=== PATIENT | female | born 1990 | race American Indian/Alaskan Native ===

== ENCOUNTER 2016-04-12 10:07 | Emergency (ER) | payer MEDICAID ==
[2016-04-12 11:18] VITALS: BP 126/73
--- NOTE | 2016-04-12 11:37 | Emergency Department Report ---
Chief Complaint: Abdominal Pain Stated Complaint: ABD PAIN Time Seen by Provider: 04/12/16 11:33 - HPI History of Present Illness: Patient is a 25 y/o female who presents due to abdominal pain x 10 days. Patient denies any dysuria, hematuria or frequency. Patient denies any fever or chills. LMP Mar 01 2016 - ROS Review of Systems: patient denies any fever, chill, diarrhea, dysuria or hematuria - Exam Vital Signs: Vital Signs 04/12/16 11:14 Temperature 98 F Pulse Rate 85 Respiratory 18 Rate Blood Pressure 126/73 O2 Sat by Pulse 100 Oximetry Physical Exam: NAD, generalized abdominal tenderness MSE screening note: Focused history and physical exam performed. Due to findings the following was ordered:abdominal pain protocols ED Disposition for MSE Condition: Stable Instructions: Abdominal Pain (ED)
[2016-04-12 12:00] LABS: Basophils % (Auto) 0.5 % (0.0-1.8); Eosinophils % (Auto) 1.4 % (0.0-4.3); Hematocrit 36.7 % (30.3-42.9); Hemoglobin 11.9 gm/dl (10.1-14.3); Mean Corpuscular HGB Conc 33 % (30-34); Mean Corpuscular Volume 75 fl (79-97); Platelet Count 380 K/mm3 (140-440); Red Cell Distribution Width 14.4 % (13.2-15.2); White Blood Count 6.3 K/mm3 (4.5-11.0)
[2016-04-12 12:07] LABS: Mean Corpuscular Hemoglobin 24 pg (28-32)
[2016-04-12 12:21] LABS: Alanine Aminotransferase 11 units/L (7-56); Albumin/Globulin Ratio 1.1 %; Alkaline Phosphatase 104 units/L (35-129); Anion Gap 15 mmol/L; BUN/Creatinine Ratio 7.14; Bilirubin,Total 0.3 mg/dL (0.1-1.2); Blood Urea Nitrogen 5 mg/dL (7-17); Calcium 8.8 mg/dL (8.4-10.2); Carbon Dioxide 24 mmol/L (22-30); Chloride 100.8 mmol/L (98-107); Glucose 95 mg/dL (65-100); Lipase 31 units/L (13-60); Potassium 3.5 mmol/L (3.6-5.0); Sodium 136 mmol/L (137-145); Total Protein 7.6 g/dL (6.3-8.2)
[2016-04-12 13:14] LABS: Bacteria,Urine 2+ /HPF (Negative); Bilirubin,Urine NEG (Negative); Blood,Urine NEG (Negative); Ketones,Urine NEG (Negative); Leukocyte Esterase,Urine TR (Negative); Mucus,Urine FEW /HPF; Nitrite,Urine NEG (Negative); Protein,Urine <15 mg/dL mg/dL (Negative); Urobilinogen,Urine < 2.0 mg/dL (<2.0)
[2016-04-12] MEDS ORDERED: UNASYN/NS 3 GM/100 ML 100 ML IV ONE (13:32)
== END 2016-04-12 14:20 | disposition left against medical advice (07) ==
LOC: ED 10:07
DX: R10.84 Generalized abdominal pain (principal); Z53.21 Procedure and treatment not carried out due to patient leaving prior to being seen by health care provider
CPT/HCPCS: 36415; 80053; 81001; 81025; 83690; 85025; J0295

== ENCOUNTER 2016-04-16 10:07 | Emergency (ER) | payer MEDICAID ==
[2016-04-16 10:22] VITALS: BP 136/81
--- NOTE | 2016-04-16 10:54 | Emergency Department Report ---
ED Abdominal Pain HPI - General Chief Complaint: Abdominal Pain Stated Complaint: STOMACH PAIN/VOMITING/BODY PAIN Source: patient Mode of arrival: Ambulatory Limitations: No Limitations - History of Present Illness Initial Comments: Patient presents today c/o of cramping pain across her lower abdomen x 2 weeks. NOTE: Patient presneted to this ED on 04/12/16 for same complaints. States she had to leave before seeing a provider as she couldn't wait. Denies resolution of symptom. Reports nausea and vomiting that are intermittent at every other day (last episode being 2 days ago). States the only time she felt this way was when she was with her now 1- YO son. Denies dysuria, urgency, hematuria or frequency, Vaginal pain/bleed/discharge, weakness, dizziness. Denies fever, chills. LMP 03/07/16. Gave 03/01/16 on prior visit. - Related Data Previous Rx's Medication Instructions Recorded Last Taken Type Azithromycin [Zithromax] 250 mg PO DAILY #1 pkg 06/05/15 Unknown Rx Ibuprofen [Motrin] 600 mg PO Q8H PRN #40 tablet 06/05/15 Unknown Rx Loratadine [Claritin] 10 mg PO DAILY #30 tablet 06/05/15 Unknown Rx Prednisone [predniSONE 10 mg 10 mg PO .TAPER #1 tab.ds.pk 06/05/15 Unknown Rx (6-Day Pack, 21 Tabs)] Promethazine /Codeine 5 ml PO Q6H PRN #120 ml 06/05/15 Unknown Rx [Phenergan/Codeine 6.25-10 mg/5 ml] Amoxicillin/K Clav Tab [Augmentin 1 tab PO Q12HR #20 tab 08/27/15 Unknown Rx 875 mg] Fluticasone [Flonase] 1 spray NS QDAY #1 bottle 08/27/15 Unknown Rx Ibuprofen [Motrin] 600 mg PO Q8H PRN #15 tablet 08/27/15 Unknown Rx predniSONE [Deltasone] 50 mg PO QAM #2 tablet 08/27/15 Unknown Rx Ibuprofen [Motrin] 800 mg PO Q8HR PRN #20 tablet 12/06/15 Unknown Rx Acetaminophen [Tylenol] 1,000 mg PO Q6HR PRN #15 tablet 04/16/16 Unknown Rx Nitrofurantoin [place]/M-Cryst 100 mg PO Q12HR #6 capsule 04/16/16 Unknown Rx [Macrobid CAP] Vit No.130/Iron/FA 1 each PO QDAY #60 tablet 04/16/16 Unknown Rx [ Tablet] Allergies Allergy/AdvReac Type Severity Reaction Status Date / Time No Known Allergies Allergy Verified 12/10/15 11:18 ED Review of Systems ROS: Stated complaint: STOMACH PAIN/VOMITING/BODY PAIN Other details as noted in HPI Comment: All other systems reviewed and negative ED Past Medical Hx - Past Medical History Previous Medical History?: No Hx Hypertension: No Hx Congestive Heart Failure: No Hx Diabetes: No Hx Deep Vein Thrombosis: No Hx Renal Disease: No Hx Sickle Cell Disease: (sickle cell trait) Hx Seizures: No Hx Asthma: No Hx COPD: No Hx HIV: No - Surgical History Past Surgical History?: Yes Additional Surgical History: hernia repair, four vaginal deliveries - Social History Smoking Status: Never Smoker Substance Use Type: None - Medications Home Medications: Home Medications Medication Instructions Recorded Confirmed Last Taken Type Azithromycin [Zithromax] 250 mg PO DAILY #1 pkg 06/05/15 Unknown Rx Ibuprofen [Motrin] 600 mg PO Q8H PRN #40 tablet 06/05/15 Unknown Rx Loratadine [Claritin] 10 mg PO DAILY #30 tablet 06/05/15 Unknown Rx Prednisone [predniSONE 10 mg 10 mg PO .TAPER #1 tab.ds.pk 06/05/15 Unknown Rx (6-Day Pack, 21 Tabs)] Promethazine /Codeine 5 ml PO Q6H PRN #120 ml 06/05/15 Unknown Rx [Phenergan/Codeine 6.25-10 mg/5 ml] Amoxicillin/K Clav Tab [Augmentin 1 tab PO Q12HR #20 tab 08/27/15 Unknown Rx 875 mg] Fluticasone [Flonase] 1 spray NS QDAY #1 bottle 08/27/15 Unknown Rx Ibuprofen [Motrin] 600 mg PO Q8H PRN #15 tablet 08/27/15 Unknown Rx predniSONE [Deltasone] 50 mg PO QAM #2 tablet 08/27/15 Unknown Rx Ibuprofen [Motrin] 800 mg PO Q8HR PRN #20 tablet 12/06/15 Unknown Rx Acetaminophen [Tylenol] 1,000 mg PO Q6HR PRN #15 tablet 04/16/16 Unknown Rx Nitrofurantoin [place]/M-Cryst 100 mg PO Q12HR #6 capsule 04/16/16 Unknown Rx [Macrobid CAP] Vit No.130/Iron/FA 1 each PO QDAY #60 tablet 04/16/16 Unknown Rx [ Tablet] ED Physical Exam - General Limitations: No Limitations General appearance: alert, in no apparent distress - Head Head exam: Present: atraumatic, normocephalic - Eye Eye exam: Present: normal appearance, PERRL, EOMI - Neck Neck exam: Present: normal inspection, full ROM. Absent: tenderness, lymphadenopathy - Respiratory Respiratory exam: Present: normal lung sounds bilaterally. Absent: respiratory distress - Cardiovascular Cardiovascular Exam: Present: regular rate, normal rhythm - GI/Abdominal GI/Abdominal exam: Present: soft, tenderness (Right CVA tenderness. No abdominopelvic tenderness.), normal bowel sounds. Absent: guarding, rebound, rigid - Extremities Exam Extremities exam: Present: normal inspection, full ROM, normal capillary refill. Absent: tenderness, pedal edema, joint swelling - Back Exam Back exam: Present: normal inspection, CVA tenderness (R) - Neurological Exam Neurological exam: Present: alert, oriented X3, normal gait, reflexes normal. Absent: motor sensory deficit - Psychiatric Psychiatric exam: Present: normal affect, normal mood - Skin Skin exam: Present: warm, dry, intact, normal color. Absent: rash, cyanosis, diaphoretic, erythema, pallor ED Course Vital Signs 04/16/16 10:19 Temperature 98.4 F Pulse Rate 105 H Respiratory 16 Rate Blood Pressure 136/81 O2 Sat by Pulse 100 Oximetry ED Medical Decision Making - Lab Data Lab and urine results from 04/12/16 reviewed. - Radiology Data Radiology results: report reviewed According to radiology report of OB and transvaginal ultrasound, there is a single intrauterine estimated at 5.5 weeks gestation (see report for details). - Medical Decision Making 25 YO 2, Para 2 with 1st trimester IUP confirmed on US. Quant HCG of 3Patient is stable. She will be DC'd on Macrobid giving the trace LE on UA, and patient has right flank pain. Patient instructed to follow up immediately with OB (referral provided). She verbalized understanding and is agreeable to plan. patient discussed with Dr. Dennis. He is agreeable to plan. Critical care attestation.: If time is entered above; I have spent that time in minutes in the direct care of this critically ill patient, excluding procedure time. ED Disposition Clinical Impression: UTI (urinary tract infection) during , Morning sickness Normal IUP (intrauterine ) on ultrasound Qualifiers: Trimester: first trimester Qualified Code(s): Z34.91 - Encounter for supervision of normal , unspecified, first trimester Disposition: DISCHARGED TO HOME OR SELFCARE Is pt being admited?: No Does the pt Need Aspirin: No Condition: Stable Instructions: Morning Sickness (ED), (ED), Urinary Tract Infection in Women (ED), Abdominal Pain (ED) Additional Instructions: Follow instructions for care. Use medications as prescribed. Schedule immediate follow-up appointment with her OB. Return to ED for new or worsening conditions. Prescriptions: Acetaminophen [Tylenol] 1,000 mg PO Q6HR PRN #15 tablet PRN Reason: Pain Nitrofurantoin [place]/M-Cryst [Macrobid CAP] 100 mg PO Q12HR #6 capsule Vit No.130/Iron/FA [ Tablet] 1 each PO QDAY #60 tablet Referrals: ROSS MOORE MD [Staff Physician] - [place] PRIMARY CAREMD [Primary Care Provider] - 2-3 Days
[2016-04-16] MEDS ORDERED: TYLENOL PO ONE (11:01)
--- NOTE | 2016-04-16 12:03 | Ultrasound Report ---
ULTRASOUND OB LESS THAN 14 WEEKS - TRANSABDOMINAL AND TRANSVAGINAL INDICATION: Pelvic cramping. Serum beta-hCG of 3576 units. COMPARISON: None similar during this gestation. FINDINGS: Transabdominal and transvaginal pelvic sonography performed in this patient with LMP of 03/01/2016 and estimated menstrual age of 6 weeks and 4 days. An anteverted uterus measuring approximately 9.1 x 5.8 x 6.5 cm demonstrates a single intrauterine gestational sac with mean diameter of 0.9 cm, corresponding to 5 weeks and 5 days. No pole identified. Small yolk sac felt present. Approximately 1 x 0.9 x 0.5 cm subchorionic hemorrhage possible, endovaginal image 32. No significant free fluid. Cervix appears closed. Both maternal ovaries identified, estimated at 4 x 2.4 x 2.9 cm on the right. Few right ovarian/paraovarian cysts range between 1.5-1.8 cm. Left ovary approximately 3.5 x 1.7 x 1.3 cm. CONCLUSION: 1. Single intrauterine gestation with an ultrasound estimated age of 5 weeks and 5 days and TREY of 12/12/2016. Viability however not confirmed at this time and may be correlated for clinically, with serial serum beta-hCG values and/or a followup sonogram in approximately 2 weeks, if warranted. 2. Few other findings, as above. Thank you for the opportunity to participate in this patient's care.
== END 2016-04-16 12:36 | disposition home or self-care (01) ==
LOC: ED 10:07
DX: Z34.91 Encounter for supervision of normal pregnancy, unspecified, first trimester (principal); O23.41 Unspecified infection of urinary tract in pregnancy, first trimester; N39.0 Urinary tract infection, site not specified; R69 Illness, unspecified; Z3A.01 Less than 8 weeks gestation of pregnancy
CPT/HCPCS: 36415; 76801; 76817; 84702; 99284

== ENCOUNTER 2016-05-06 20:28 | Emergency (ER) | payer MEDICAID ==
[2016-05-06 22:15] LABS: Basophils % (Auto) 0.4 % (0.0-1.8); Eosinophils % (Auto) 0.5 % (0.0-4.3); Hematocrit 37.2 % (30.3-42.9); Hemoglobin 12.3 gm/dl (10.1-14.3); Mean Corpuscular HGB Conc 33 % (30-34); Mean Corpuscular Volume 73 fl (79-97); Platelet Count 376 K/mm3 (140-440); Red Blood Count 5.08 M/mm3 (3.65-5.03); Red Cell Distribution Width 16.2 % (13.2-15.2)
[2016-05-06 22:17] LABS: Alanine Aminotransferase 9 units/L (7-56); Albumin/Globulin Ratio 1.1 %; Alkaline Phosphatase 94 units/L (35-129); Anion Gap 17 mmol/L; Bilirubin,Total 0.4 mg/dL (0.1-1.2); Blood Urea Nitrogen 6 mg/dL (7-17); Calcium 8.8 mg/dL (8.4-10.2); Carbon Dioxide 25 mmol/L (22-30); Chloride 98.3 mmol/L (98-107); Glucose 95 mg/dL (65-100); Lipase 14 units/L (13-60); Sodium 136 mmol/L (137-145); Total Protein 7.8 g/dL (6.3-8.2)
[2016-05-06 22:26] LABS: Mean Corpuscular Hemoglobin 24 pg (28-32)
[2016-05-06 22:38] LABS: Bilirubin,Urine NEG (Negative); Blood,Urine NEG (Negative); Ketones,Urine NEG (Negative); Leukocyte Esterase,Urine TR (Negative); Mucus,Urine FEW /HPF; Nitrite,Urine NEG (Negative); Protein,Urine <15 mg/dL mg/dL (Negative); Urobilinogen,Urine < 2.0 mg/dL (<2.0)
[2016-05-06] MEDS ORDERED: PHENERGAN PO ONE (23:34)
--- NOTE | 2016-05-06 23:39 | Emergency Department Report ---
ED N/V/D HPI - General Chief complaint: Abdominal Pain Stated complaint: VOMITING Time Seen by Provider: 05/06/16 23:30 Source: patient Mode of arrival: Ambulatory Limitations: No Limitations - History of Present Illness Initial comments: 25-year-old female presents to the emergency department complaining of nausea and vomiting. Patient states symptoms have been present for approximately 2 weeks. Patient states she is 9 weeks , . Her SALES H[employer]TER prescribed her Zofran ODT, but states this is not working. Patient reports upper abdominal soreness secondary to vomiting. She denies diarrhea, vaginal bleeding , or vaginal discharge. She states she has had an ultrasound this that showed an IUP. There are no other complaints. MD complaint: nausea, vomiting, abdominal pain -: Gradual, week(s) (2) Description of Vomiting: food contents Associated Abdominal Pain: Yes Location: epigastric Radiation: none Severity: mild Quality: aching Consistency: constant Improves with: none Worsens with: none Associated Symptoms: denies other symptoms - Related Data Previous Rx's Medication Instructions Recorded Last Taken Type Azithromycin [Zithromax] 250 mg PO DAILY #1 pkg 06/05/15 Unknown Rx Ibuprofen [Motrin] 600 mg PO Q8H PRN #40 tablet 06/05/15 Unknown Rx Loratadine [Claritin] 10 mg PO DAILY #30 tablet 06/05/15 Unknown Rx Prednisone [predniSONE 10 mg 10 mg PO .TAPER #1 tab.ds.pk 06/05/15 Unknown Rx (6-Day Pack, 21 Tabs)] Promethazine /Codeine 5 ml PO Q6H PRN #120 ml 06/05/15 Unknown Rx [Phenergan/Codeine 6.25-10 mg/5 ml] Amoxicillin/K Clav Tab [Augmentin 1 tab PO Q12HR #20 tab 08/27/15 Unknown Rx 875 mg] Fluticasone [Flonase] 1 spray NS QDAY #1 bottle 08/27/15 Unknown Rx Ibuprofen [Motrin] 600 mg PO Q8H PRN #15 tablet 08/27/15 Unknown Rx predniSONE [Deltasone] 50 mg PO QAM #2 tablet 08/27/15 Unknown Rx Ibuprofen [Motrin] 800 mg PO Q8HR PRN #20 tablet 12/06/15 Unknown Rx Acetaminophen [Tylenol] 1,000 mg PO Q6HR PRN #15 tablet 02/03/17 Unknown Rx Nitrofurantoin [place]/M-Cryst 100 mg PO Q12HR #6 capsule 04/16/16 Unknown Rx [Macrobid CAP] Vit No.130/Iron/FA 1 each PO QDAY #60 tablet 04/16/16 Unknown Rx [ Tablet] Allergies Allergy/AdvReac Type Severity Reaction Status Date / Time No Known Allergies Allergy Verified 12/10/15 11:18 ED Review of Systems ROS: Stated complaint: VOMITING Other details as noted in HPI Comment: All other systems reviewed and negative Gastrointestinal: abdominal pain, nausea, vomiting ED Past Medical Hx - Past Medical History Previous Medical History?: No Hx Hypertension: No Hx Congestive Heart Failure: No Hx Diabetes: No Hx Deep Vein Thrombosis: No Hx Renal Disease: No Hx Sickle Cell Disease: (sickle cell trait) Hx Seizures: No Hx Asthma: No Hx COPD: No Hx HIV: No - Surgical History Past Surgical History?: Yes Additional Surgical History: hernia repair, four vaginal deliveries - Family History Family history: no significant - Social History Smoking Status: Never Smoker Substance Use Type: None - Medications Home Medications: Home Medications Medication Instructions Recorded Confirmed Last Taken Type Azithromycin [Zithromax] 250 mg PO DAILY #1 pkg 06/05/15 Unknown Rx Ibuprofen [Motrin] 600 mg PO Q8H PRN #40 tablet 06/05/15 Unknown Rx Loratadine [Claritin] 10 mg PO DAILY #30 tablet 06/05/15 Unknown Rx Prednisone [predniSONE 10 mg 10 mg PO .TAPER #1 tab.ds.pk 06/05/15 Unknown Rx (6-Day Pack, 21 Tabs)] Promethazine /Codeine 5 ml PO Q6H PRN #120 ml 06/05/15 Unknown Rx [Phenergan/Codeine 6.25-10 mg/5 ml] Amoxicillin/K Clav Tab [Augmentin 1 tab PO Q12HR #20 tab 08/27/15 Unknown Rx 875 mg] Fluticasone [Flonase] 1 spray NS QDAY #1 bottle 08/27/15 Unknown Rx Ibuprofen [Motrin] 600 mg PO Q8H PRN #15 tablet 08/27/15 Unknown Rx predniSONE [Deltasone] 50 mg PO QAM #2 tablet 08/27/15 Unknown Rx Ibuprofen [Motrin] 800 mg PO Q8HR PRN #20 tablet 12/06/15 Unknown Rx Acetaminophen [Tylenol] 1,000 mg PO Q6HR PRN #15 tablet 04/16/16 Unknown Rx Nitrofurantoin [place]/M-Cryst 100 mg PO Q12HR #6 capsule 04/16/16 Unknown Rx [Macrobid CAP] Vit No.130/Iron/FA 1 each PO QDAY #60 tablet 04/16/16 Unknown Rx [ Tablet] ED Physical Exam - General Limitations: No Limitations General appearance: alert, in no apparent distress - Head Head exam: Present: atraumatic, normocephalic - Eye Eye exam: Present: normal appearance, PERRL, EOMI - ENT ENT exam: Present: normal exam, normal orophraynx, mucous membranes moist - Neck Neck exam: Present: normal inspection, full ROM. Absent: tenderness - Respiratory Respiratory exam: Present: normal lung sounds bilaterally. Absent: respiratory distress - Cardiovascular Cardiovascular Exam: Present: regular rate, normal rhythm, normal heart sounds - GI/Abdominal GI/Abdominal exam: Present: soft, normal bowel sounds. Absent: distended, tenderness - Extremities Exam Extremities exam: Present: normal inspection, full ROM. Absent: tenderness - Back Exam Back exam: Present: normal inspection, full ROM. Absent: tenderness - Neurological Exam Neurological exam: Present: alert, oriented X3. Absent: motor sensory deficit - Skin Skin exam: Present: warm, dry, intact ED Course Vital Signs 05/06/16 05/06/16 05/07/16 21:14 23:40 01:00 Temperature 98.7 F 98.5 F Pulse Rate 77 86 Respiratory 16 20 Rate Blood Pressure 114/73 Blood Pressure 129/79 [Left] O2 Sat by Pulse 100 100 100 Oximetry ED Medical Decision Making - Lab Data Result diagrams: 05/06/16 21:44 05/06/16 21:44 - Medical Decision Making Lab results reviewed and discussed with the patient. Patient reports feeling better following IV fluids and medication. Patient has tolerated oral liquids. Patient will be discharged home at this time to follow up with her [employer]ES [employer]TER. - Differential Diagnosis vomiting, dehydration, electrolyte abnormality, hyperemesis gravidarum Critical care attestation.: If time is entered above; I have spent that time in minutes in the direct care of this critically ill patient, excluding procedure time. ED Disposition Clinical Impression: Vomiting affecting Disposition: DISCHARGED TO HOME OR SELFCARE Is pt being admited?: No Condition: Stable Instructions: Acute Nausea and Vomiting (ED) Referrals: MARIANO ROBLERO MD [Staff Physician] - 3-5 Days Time of Disposition: 01:53
[2016-05-07] MEDS ORDERED: ZOFRAN ONE (00:22)
[2016-05-07] MEDS ORDERED: NACL 0.9% 1000 ML 1,000 ML ONE (00:22)
[2016-05-07] MEDS ORDERED: NACL 0.9% 1000 ML 1,000 ML IV ONE (00:24)
[2016-05-07] MEDS ORDERED: ZOFRAN IV ONE (00:24)
[2016-05-07 02:16] VITALS: BP 110/68
== END 2016-05-07 02:20 | disposition home or self-care (01) ==
LOC: ED 20:28
DX: O21.9 Vomiting of pregnancy, unspecified (principal); Z3A.01 Less than 8 weeks gestation of pregnancy; D57.3 Sickle-cell trait
CPT/HCPCS: 36415; 80053; 81001; 83690; 84703; 85025; 96361; 96374; 99283; J2405; J7030; Q0169

== ENCOUNTER 2016-05-08 16:06 | Emergency (ER) | payer MEDICAID ==
[2016-05-08 16:37] VITALS: BP 119/71
[2016-05-08 17:49] LABS: Bilirubin,Urine NEG (Negative); Blood,Urine NEG (Negative); Ketones,Urine NEG (Negative); Leukocyte Esterase,Urine SM (Negative); Nitrite,Urine NEG (Negative); Protein,Urine <15 mg/dL mg/dL (Negative); Urobilinogen,Urine < 2.0 mg/dL (<2.0)
[2016-05-08 18:54] LABS: Anion Gap 19 mmol/L; Blood Urea Nitrogen 6 mg/dL (7-17); Calcium 9.2 mg/dL (8.4-10.2); Carbon Dioxide 24 mmol/L (22-30); Chloride 99.4 mmol/L (98-107); Glucose 89 mg/dL (65-100); Potassium 3.9 mmol/L (3.6-5.0); Sodium 138 mmol/L (137-145)
--- NOTE | 2016-05-09 08:16 | ED Elopement Review ---
ED Pt Elopement review - Results review Lab results: Laboratory Tests 05/08/16 05/08/16 17:24 18:24 Sodium 138 Potassium 3.9 Chloride 99.4 Carbon Dioxide 24 Anion Gap 19 BUN 6 L Creatinine 0.6 L Estimated GFR > 60 BUN/Creatinine Ratio 10.00 Glucose 89 Calcium 9.2 Urine Color Yellow Urine Turbidity Clear Urine pH 6.0 Ur Specific [place] 1.014 Urine Protein <15 mg/dl Urine Glucose (UA) Neg Urine Ketones Neg Urine Blood Neg Urine Nitrite Neg Urine Bilirubin Neg Urine Urobilinogen < 2.0 Ur Leukocyte Esterase Sm Urine WBC (Auto) 1.0 Urine RBC (Auto) 2.0 U Epithel Cells (Auto) 4.0 - Call Back decision Pt Call Back Decision: No action required
== END 2016-05-09 01:53 | disposition left against medical advice (07) ==
LOC: ED 16:06
DX: O21.9 Vomiting of pregnancy, unspecified (principal); R11.0 Nausea; Z3A.10 10 weeks gestation of pregnancy; Z53.21 Procedure and treatment not carried out due to patient leaving prior to being seen by health care provider
CPT/HCPCS: 36415; 80048; 81001

== ENCOUNTER 2016-06-02 17:51 | Emergency (ER) | payer MEDICAID ==
[2016-06-02 18:59] LABS: Basophils % (Auto) 0.3 % (0.0-1.8); Eosinophils % (Auto) 0.2 % (0.0-4.3); Hematocrit 40.8 % (30.3-42.9); Hemoglobin 13.8 gm/dl (10.1-14.3); Mean Corpuscular HGB Conc 34 % (30-34); Mean Corpuscular Volume 72 fl (79-97); Platelet Count 314 K/mm3 (140-440); Red Blood Count 5.66 M/mm3 (3.65-5.03); Red Cell Distribution Width 17.4 % (13.2-15.2); White Blood Count 4.3 K/mm3 (4.5-11.0)
[2016-06-02 19:04] LABS: Mean Corpuscular Hemoglobin 25 pg (28-32)
[2016-06-02 19:06] LABS: Anion Gap 20 mmol/L; BUN/Creatinine Ratio 8.57; Blood Urea Nitrogen 6 mg/dL (7-17); Calcium 8.8 mg/dL (8.4-10.2); Carbon Dioxide 23 mmol/L (22-30); Chloride 94.9 mmol/L (98-107); Glucose 89 mg/dL (65-100); Potassium 3.5 mmol/L (3.6-5.0); Sodium 134 mmol/L (137-145)
[2016-06-02 19:17] LABS: Bilirubin,Urine NEG (Negative); Blood,Urine SM (Negative); Ketones,Urine TR mg/dL (Negative); Leukocyte Esterase,Urine LG (Negative); Nitrite,Urine NEG (Negative)
[2016-06-02 21:39] VITALS: BP 112/61
[2016-06-02] MEDS ORDERED: ZOFRAN IV ONE (21:43)
[2016-06-02] MEDS ORDERED: ROCEPHIN/NS 1 GM/50 ML 1 GM/50 ML BAG IV ONE (21:43)
[2016-06-02] MEDS ORDERED: TYLENOL PO ONE (21:43)
[2016-06-02] MEDS ORDERED: K-DUR PO ONE (21:47)
--- NOTE | 2016-06-02 21:48 | Emergency Department Report ---
ED N/V/D HPI - General Chief complaint: Nausea/Vomiting/Diarrhea Stated complaint: 11 WKS /POSS FLU Time Seen by Provider: 06/02/16 21:37 Source: patient Mode of arrival: Ambulatory Limitations: No Limitations - History of Present Illness Initial comments: 25-year-old female the past medical history sickle cell trait currently 11 weeks presents to Hospital complaints of the flu. Patient states her children are all sick with similar symptoms. She was told to only take Tylenol. For the past 5 days she has had nausea, vomiting with by mouth intolerance and hasn't been able to eat or drink anything. Positive fever with Generalized body aches described as 10/10 intensity. Positive cough productive of sputum. Patient swallows he cannot recall the color. She denies diarrhea. She has had care including ultrasound denies vaginal bleeding or dysuria - Related Data Previous Rx's Medication Instructions Recorded Last Taken Type Vit No.130/Iron/FA 1 each PO QDAY #60 tablet 04/16/16 05/08/16 09:00 Rx [ Tablet] Nitrofurantoin [place]/M-Cryst 100 mg PO Q12HR #14 capsule 06/03/16 Unknown Rx [Macrobid CAP] Promethazine HCl [Phenergan SUPPOS] 25 mg RC Q4-6H PRN #20 supp.rect 06/03/16 Unknown Rx Allergies Allergy/AdvReac Type Severity Reaction Status Date / Time No Known Allergies Allergy Verified 06/02/16 18:15 ED Review of Systems ROS: Stated complaint: 11 WKS /POSS FLU Other details as noted in HPI Comment: All other systems reviewed and negative Other: Constitutional: No fevers chills Eyes: No eye pain visual changes ENT:+ sore throat Neck: Denies pain Respiratory: + cough, no sob Cardiovascular: Denies chest pain, palpitations, syncope GI: as per hpi : Denies dysuria Musculoskeletal: Generalized body Skin: Denies rash, lesions, erythema Neurologic: Denies headache, numbness, weakness Psychiatric: Denies suicidal ideation, hallucinations ED Past Medical Hx - Past Medical History Hx Hypertension: No Hx Congestive Heart Failure: No Hx Diabetes: No Hx Deep Vein Thrombosis: No Hx Renal Disease: No Hx Sickle Cell Disease: Yes (sickle cell trait.) Hx Seizures: No Hx Asthma: No Hx COPD: No Hx HIV: No - Surgical History Additional Surgical History: hernia repair, four vaginal deliveries - Social History Smoking Status: Never Smoker Substance Use Type: None - Medications Home Medications: Home Medications Medication Instructions Recorded Confirmed Last Taken Type Vit No.130/Iron/FA 1 each PO QDAY #60 tablet 04/16/16 05/08/16 09:00 Rx [ Tablet] Nitrofurantoin [place]/M-Cryst 100 mg PO Q12HR #14 capsule 06/03/16 Unknown Rx [Macrobid CAP] Promethazine HCl [Phenergan SUPPOS] 25 mg RC Q4-6H PRN #20 supp.rect 06/03/16 Unknown Rx ED Physical Exam - General Limitations: No Limitations - Other Other exam information: General: No limitations, patient is alert in no acute distress Head exam: Atraumatic, normocephalic Eyes exam: Normal appearance, pupils equal reactive to light, extraocular movements intact ENT: No exudates posteriorly Neck exam: Normal inspection, full range of motion, no meningismus nontender Respiratory exam: Clear to auscultation bilateral, no wheezes, rales, crackles Cardiovascular: Normal rate and rhythm, normal heart sounds Abdomen: Soft, nondistended, and nontender, with normal bowel sounds, no rebound, or guarding Extremity: Full range of motion normal inspection no deformity Back: Normal Inspection, full range of motion, no tenderness Neurologic: Alert, oriented x3, cranial nerves intact, no motor or sensory deficit Psychiatric: normal affect, normal mood Skin: Warm, dry, intact ED Course Vital Signs 06/02/16 06/02/16 18:10 21:38 Temperature 98.5 F Pulse Rate 99 H 101 H Respiratory 16 16 Rate Blood Pressure 118/87 Blood Pressure 112/61 [Left] O2 Sat by Pulse 100 100 Oximetry - Reevaluation(s) Reevaluation #1: 06/02/16 21:46 Tylenol, D5 normal saline and Rocephin ordered IV ED Medical Decision Making - Lab Data Result diagrams: 06/02/16 18:28 06/02/16 18:28 Lab Results 06/02/16 06/02/16 06/02/16 Range/Units 18:28 18:28 18:30 WBC 4.3 L (4.5-11.0) K/mm3 RBC 5.66 H (3.65-5.03) M/mm3 Hgb 13.8 (10.1-14.3) gm/dl Hct 40.8 (30.3-42.9) % MCV 72 L (79-97) fl MCH 25 L (28-32) pg MCHC 34 (30-34) % RDW 17.4 H (13.2-15.2) % Plt Count 314 (140-440) K/mm3 Lymph % (Auto) 27.1 (13.4-35.0) % [place] % (Auto) 9.9 H (0.0-7.3) % Eos % (Auto) 0.2 (0.0-4.3) % Baso % (Auto) 0.3 (0.0-1.8) % Lymph # 1.2 (1.2-5.4) K/mm3 [place] # 0.4 (0.0-0.8) K/mm3 Eos # 0.0 (0.0-0.4) K/mm3 Baso # 0.0 (0.0-0.1) K/mm3 Seg Neutrophils % 62.5 (40.0-70.0) % Seg Neutrophils # 2.7 (1.8-7.7) K/mm3 Carbon Dioxide 23 (22-30) mmol/L BUN 6 L (7-17) mg/dL Creatinine 0.7 (0.7-1.2) mg/dL Estimated GFR > 60 ml/min BUN/Creatinine Ratio 8.57 % Glucose 89 (65-100) mg/dL Calcium 8.8 (8.4-10.2) mg/dL Urine Color Yellow (Yellow) Urine Turbidity Slightly-cloudy (Clear) Urine pH 5.0 (5.0-7.0) Ur Specific [place] 1.018 (1.003-1.030) Urine Protein 30 mg/dl (Negative) mg/dL Urine Glucose (UA) Neg (Negative) mg/dL Urine Ketones Tr (Negative) mg/dL Urine Blood Sm (Negative) Urine Nitrite Neg (Negative) Urine Bilirubin Neg (Negative) Urine Urobilinogen 2.0 (<2.0) mg/dL Ur Leukocyte Esterase Lg (Negative) Urine WBC (Auto) 30.0 H (0.0-6.0) /HPF Urine RBC (Auto) 5.0 (0.0-6.0) /HPF U Epithel Cells (Auto) 21.0 H (0-13.0) /HPF Sodium 134, potassium 3.5, chloride 94.9, anion gap 20 - Medical Decision Making Feeling better after IV fluids and meds. Will tolerate by mouth salicylate ED. Will be discharged on Macrobid for urinary leukocytosis. Culture pending. - Differential Diagnosis UTI, viral syndrome, pneumonia, gastritis, pancreatitis, N/V in Critical Care Time: No Critical care attestation.: If time is entered above; I have spent that time in minutes in the direct care of this critically ill patient, excluding procedure time. ED Disposition Clinical Impression: Viral syndrome, , Hypokalemia, Nausea and vomiting during , Urine WBC increased Disposition: DISCHARGED TO HOME OR SELFCARE Is pt being admited?: No Does the pt Need Aspirin: No Condition: Stable Instructions: (ED), Viral Syndrome (ED), Urinary Tract Infection in Women (ED) Additional Instructions: Take the nausea medication as needed. Take Tylenol as needed for pain or fever. Follow-up with her doctor. Return if symptoms worsen. Prescriptions: Nitrofurantoin [place]/M-Cryst [Macrobid CAP] 100 mg PO Q12HR #14 capsule Promethazine HCl [Phenergan SUPPOS] 25 mg RC Q4-6H PRN #20 supp.rect PRN Reason: Nausea And Vomiting Referrals: MARIANO ROBLERO MD [Primary Care Provider] - 3-5 Days Time of Disposition: 00:17
[2016-06-02 21:56] LABS: Alanine Aminotransferase 14 units/L (7-56); Albumin/Globulin Ratio 0.9 %; Alkaline Phosphatase 105 units/L (35-129); Bilirubin,Total 0.4 mg/dL (0.1-1.2); Lipase 31 units/L (13-60); Total Protein 8.4 g/dL (6.3-8.2)
[2016-06-02] MEDS ORDERED: D5NS 1,000 ML IV SCH (22:00)
[2016-06-02 22:07] LABS: Bilirubin,Direct < 0.2 mg/dL (0-0.2); Bilirubin,Indirect 0.2 mg/dL
== END 2016-06-03 00:40 | disposition home or self-care (01) ==
LOC: ED 17:51
DX: O21.0 Mild hyperemesis gravidarum (principal); O99.281 Endocrine, nutritional and metabolic diseases complicating pregnancy, first trimester; E87.6 Hypokalemia; B34.9 Viral infection, unspecified; R82.99 Other abnormal findings in urine; Z3A.11 11 weeks gestation of pregnancy
CPT/HCPCS: 36415; 80048; 80074; 81001; 83690; 85025; 87086; 87400; 96361; 96374; 96375; 99284; J0696; J2405; J7042; 82962

== ENCOUNTER 2016-09-24 17:32 | Outpatient (CLI) | payer MEDICAID ==
[2016-09-24 18:24] VITALS: BP 116/63
[2016-09-24 18:57] LABS: Bilirubin,Urine NEG (Negative); Blood,Urine NEG (Negative); Ketones,Urine NEG (Negative); Leukocyte Esterase,Urine LG (Negative); Mucus,Urine FEW /HPF; Nitrite,Urine NEG (Negative); Protein,Urine <15 mg/dL mg/dL (Negative); Urobilinogen,Urine < 2.0 mg/dL (<2.0)
[2016-09-24] MEDS ORDERED: LACTATED RINGERS 500 ML IV ONE (19:29)
[2016-09-24] MEDS ORDERED: FLEXERIL PO ONE (20:30)
== END 2016-09-24 20:00 | disposition home or self-care (01) ==
LOC: TRG 17:32
PROVIDERS: ATTEND Obstetrics & Gynecology
DX: O47.1 False labor at or after 37 completed weeks of gestation (principal); Z3A.28 28 weeks gestation of pregnancy
CPT/HCPCS: 81001; J7120

== ENCOUNTER 2016-11-26 02:50 | Inpatient (IN) | payer MEDICAID ==
[2016-11-26] MEDS ORDERED: LACTATED RINGERS 1,000 ML ONE (03:48)
--- NOTE | 2016-11-26 04:11 | History and Physical Report ---
History of Present Illness Date of admission: 11/26/16 03:20 History of present illness: Menstrual History Regularity: regular Menses every: 28 days Duration: 5 LMP: 03/01/2016 LMP reliability: definite LMP character: normal test type: urine test Date: 04/20/2016 BC at conception: none Planned ? no EDC Calculations LMP: 12/06/2016 EDC Confirmation: 12/15/2016 Past History : 5 Term Births: 4 Premature Births: 0 Living Children: 4 Para: 4 Mult. Births: 0 Prev : 0 Prev. attempt? 0 Aborta: 0 Elect. Ab: 0 Spont. Ab: 0 Ectopics: 0 # 1 Delivery date: 12/13/2010 Weeks Gestation: 36 labor: yes Delivery type: Anesthesia type: epidural Delivery location: [facility] Infant Sex: Male weight: 5-11 Name: Olu # 2 Delivery date: 12/28/2011 Weeks Gestation: 37 Delivery type: Anesthesia type: epidural Delivery location: [facility] Infant Sex: Male weight: 6-6 Name: V[place]a # 3 Delivery date: 07/22/2013 Weeks Gestation: 38 Delivery type: Delivery location: [facility] Sex: Female weight: 5-12 Name: Josy # 4 Delivery date: 03/20/2015 Weeks Gestation: 38 Delivery type: Delivery location: [facility] Infant Sex: Male weight: 7-0 Past Medical History: None Past Surgical History: Hernia repair as a child Past Medical History Abnormal PAP: negative Uterine Anomaly: negative Social Hx: Patient is single Smoking History: Patient has never smoked. Infection History HIV Risk Eval: no Genetic History Congenital Heart Defect: Mom: no Dad: no Myesha Disease: Mom: no Dad: no Thalassemia Mom: no Dad: no Neural Tube Defect Mom: no Dad: no Down's Syndrome Mom: no Dad: no Paco-Sachs Mom: no Dad: no Sickle Cell Disease/Trait Mom: yes Dad: no Hemophilia Mom: no Dad: no Muscular Dystrophy Mom: no Dad: no Cystic Fibrosis Mom: no Dad: no [place] Chorea Mom: no Dad: no Mental Retardation Mom: no Dad: no Fragile X Mom: no Dad: no Other Genetic/Chromosomal Disorder Mom: no Dad: no Child w/other defect Mom: no Dad: no Enviromental Exposures Xray Exposure: no Medication, drug, or alcohol use since LMP: no Chemical/Other Exposure: no Current Allergies (reviewed today): No known allergies Past History - Obstetrical History Expected Date of Delivery: 12/15/16 Actual Gestation: 37 Week(s) 2 Day(s) : 5 Para: 4 Hx # Term Pregnancies: 4 Number of Pregnancies: 0 Spontaneous Abortions: 0 Induced : 0 Number of Living Children: 4 Medications and Allergies Allergies Allergy/AdvReac Type Severity Reaction Status Date / Time No Known Allergies Allergy Verified 06/02/16 18:15 Home Medications Medication Instructions Recorded Confirmed Last Taken Type Vit No.130/Iron/FA 1 each PO QDAY #60 tablet 04/16/16 05/08/16 09:00 Rx [ Tablet] Nitrofurantoin [place]/M-Cryst 100 mg PO Q12HR #14 capsule 06/03/16 Unknown Rx [Macrobid CAP] Promethazine HCl [Phenergan SUPPOS] 25 mg RC Q4-6H PRN #20 supp.rect 06/03/16 Unknown Rx - Vital Signs Vital signs: Vital Signs Pulse BP 92 H 140/89 11/26/16 03:03 11/26/16 03:03 Temp Pulse Resp BP Pulse Ox 110 H 140/89 99 11/26/16 03:15 11/26/16 03:03 11/26/16 03:15 - Physical Exam Breasts: Positive: deferred Cardiovascular: Regular rate Abdomen: Positive: normal appearance, soft Genitourinary (Female): Positive: normal external genitalia Vagina: Positive: normal moisture Uterus: Positive: enlarged - Obstetrical FHR: category 1 Uterine Contraction Monitor Mode: Palpation Cervical Dilatation: 4 Cervical Effacement Percentage: 70 station: -2 Uterine Contraction Pattern: Regular Uterine Tone Measurement Phase: Resting Uterine Contraction Intensity: Moderate Results All other labs normal. Assessment and Plan - Patient Problems (1) 37 or more weeks gestation of Current Visit: Yes Status: Acute (2) Active labor at term Current Visit: No Status: Acute Plan to address problem: Admit follow labor protocol
[2016-11-26] MEDS ORDERED: BRETHINE SUB-Q PRN (04:13)
[2016-11-26] MEDS ORDERED: STADOL IV PRN (04:13)
[2016-11-26] MEDS ORDERED: ePHEDrine SULFATE IV PRN ×2 (04:13→06:01)
[2016-11-26] MEDS ORDERED: PHENERGAN PO PRN (04:13)
[2016-11-26] MEDS ORDERED: BRETHINE IVP PRN (04:13)
[2016-11-26 04:16] LABS: Hematocrit 34.8 % (30.3-42.9); Hemoglobin 11.7 gm/dl (10.1-14.3); Mean Corpuscular HGB Conc 34 % (30-34); Platelet Count 209 K/mm3 (140-440); Red Blood Count 5.01 M/mm3 (3.65-5.03); Red Cell Distribution Width 15.3 % (13.2-15.2)
[2016-11-26 04:20] LABS: Mean Corpuscular Hemoglobin 23 pg (28-32); Mean Corpuscular Volume 69 fl (79-97)
[2016-11-26] MEDS ORDERED: PITOCin/NS 20 UNIT/1000ML DRIP 20 UNITS/1,000 ML BAG IV SCH ×2 (05:00→12:32)
[2016-11-26] MEDS: LACTATED RINGERS 1,000 ML IV SCH ×2 (05:02→07:51)
[2016-11-26] MEDS ORDERED: NARCAN 2 MG/2 ML IV PRN (06:01)
--- NOTE | 2016-11-26 06:01 | Anesthesia Consultation ---
Anesthesia Consult and Med Hx Date of service: 11/26/16 - Airway Anesthetic Teeth Evaluation: Good ROM Head & Neck: Adequate Mental/Hyoid Distance: Adequate Mallampati Class: Class II Intubation Access Assessment: Probably Good - Pre-Operative Health Status ASA Pre-Surgery Classification: ASA2, Emergency Proposed Anesthetic Plan: Epidural, Spinal - Pulmonary Hx Asthma: No COPD: No Hx Pneumonia: No - Cardiovascular System Hx Hypertension: No - Central Nervous System Hx Seizures: No Hx Psychiatric Problems: No - Endocrine Hx Renal Disease: No Hx End Stage Renal Disease: No Hx Hypothyroidism: No Hx Hyperthyroidism: No - Hematic Hx Anemia: Yes Hx Sickle Cell Disease: Yes (TRAIT) - Other Systems Hx Alcohol Use: No
[2016-11-26 06:41] LABS: Hematocrit 31.4 % (30.3-42.9); Hemoglobin 10.4 gm/dl (10.1-14.3)
[2016-11-26] MEDS ORDERED: fentaNYL-BUPIV 2 MCG/ML-0.125% 200 MCG/100 ML BAG EPIDURAL SCH (07:00)
[2016-11-26] MEDS ORDERED: PITOCin/NS 30 UNIT/500ML 30,000 MILLIUNITS/500 ML BAG IV ONE (07:07)
--- NOTE | 2016-11-26 07:07 | Event Note ---
Date: 11/26/16 AROM clear fluid little change in cervix. Patient comfortable after epidural Will start pitocin
[2016-11-26] MEDS ORDERED: PITOCin/NS 30 UNIT/500ML 30 UNITS/500 ML BAG IV SCH (08:30)
--- NOTE | 2016-11-26 08:30 | Operative Report ---
Operative Report Operative Report: Pre-operative diagnosis: Patient desires permanent sterilization Post-operative diagnosis: Same Procedure name(s): Laparoscopic bilateral tubal ligation with Falope-Rings also cautery Surgeon: Nino Davis MD Cook Manager: [] Anesthesia: General endotracheal EBL: Minimal Complications: None Findings: Patient with uterus approximately 8-10 weeks in size with small posterior myoma and normal fallopian tubes bilaterally Specimen(s): None Patient was brought in the operating room. General anesthesia was induced without difficulty. She was placed in dorsal lithotomy position. Prepped and draped in usual sterile manner. Her urinary bladder with was emptied with a red rubber catheter. Speculum placed in her vagina and Sargis uterine manipulator was placed for uterine manipulation. Attention was then switched to the patient's abdomen. An infra-umbilical incision was made with a scalpel. This incision was spread with a hemostat. A 5 mm trocar was placed in this incision while lifting high the abdominal wall. Intra-abdominal presence was verified directly with the laparoscope. The patient was then insufflated to approximately 3 L of CO2 gas. The patient's findings as noted above. An accessory puncture was made suprapubically. The 8 mm trocar was placed through this incision under direct visualization with no evidence of internal organ damage. Each of the fallopian tube were identified by its fimbriated end. A portion approximately 1-2 cm from each cornua was grasped with the Falope ring applicator. The Falope ring on the right tube did not completely capture the tube but complete capture the tube was achieved on the left. Bilaterally the portions of fallopian tube were cauterized on each side of Falope-Rings with bipolar cautery forceps also the Falope-Rings were cut and cauterized. On the right the Falope ring was removed with the knuckle completely cauterized. Both operative sites were hemostatic. At this time all instruments were removed. The patient was insufflated. The skin incisions were closed subcuticular with 4 -0 Vicryl. Marcaine was given subcuticularly for postoperative pain relief. The patient tolerated procedure well. She was awakened in the operating room and accompanied to the recovery room in good condition.
--- NOTE | 2016-11-26 08:52 | Progress Note ---
Assessment and Plan patient laboring well, no complaints. Epidural working well w/ good relief. IUPC tracing well, ISE not functioning so EFM reapplied. RN to continue to increase pitocin for adequate labor. Anticipate . - Patient Problems (1) 37 or more weeks gestation of Current Visit: Yes Status: Acute (2) Active labor at term Current Visit: No Status: Acute Subjective - Subjective Date of service: 11/26/16 Principal diagnosis: IUP @ 37+ weeks, labor Patient reports: no new complaints (comfortable with epidural) Objective - Vital Signs Vital Signs: Vital Signs - 12hr 11/26/16 11/26/16 11/26/16 03:03 03:06 03:11 Temperature Pulse Rate 92 H 214 H 101 H Respiratory Rate Blood Pressure 140/89 O2 Sat by Pulse 99 99 Oximetry 11/26/16 11/26/16 11/26/16 03:15 04:55 04:56 Temperature Pulse Rate 110 H 100 H 59 L Respiratory Rate Blood Pressure O2 Sat by Pulse 99 100 65 L Oximetry 11/26/16 11/26/16 11/26/16 05:00 05:02 05:04 Temperature 97.3 F L Pulse Rate 97 H 110 H 105 H Respiratory 18 Rate Blood Pressure 121/77 118/74 117/75 O2 Sat by Pulse 100 Oximetry 11/26/16 11/26/16 11/26/16 05:05 05:06 05:08 Temperature Pulse Rate 95 H 96 H 105 H Respiratory Rate Blood Pressure 116/74 108/65 O2 Sat by Pulse 99 Oximetry 11/26/16 11/26/16 11/26/16 05:10 05:13 05:15 Temperature Pulse Rate 107 H 114 H 110 H Respiratory Rate Blood Pressure 110/67 149/73 O2 Sat by Pulse 99 81 L 98 Oximetry 11/26/16 11/26/16 11/26/16 05:16 05:18 05:20 Temperature Pulse Rate 105 H 98 H 105 H Respiratory Rate Blood Pressure 153/83 137/82 132/77 O2 Sat by Pulse 100 Oximetry 11/26/16 11/26/16 11/26/16 05:22 05:24 05:25 Temperature Pulse Rate 104 H 100 H 104 H Respiratory Rate Blood Pressure 122/80 122/74 O2 Sat by Pulse 97 Oximetry 11/26/16 11/26/16 11/26/16 05:27 05:28 05:30 Temperature Pulse Rate 95 H 105 H 119 H Respiratory Rate Blood Pressure 143/85 140/77 136/77 O2 Sat by Pulse 99 Oximetry 11/26/16 11/26/16 11/26/16 05:32 05:34 05:35 Temperature Pulse Rate 136 H 111 H 113 H Respiratory Rate Blood Pressure 131/80 136/83 O2 Sat by Pulse 100 Oximetry 11/26/16 11/26/16 11/26/16 05:36 05:38 05:40 Temperature Pulse Rate 121 H 111 H 111 H Respiratory Rate Blood Pressure 124/77 145/88 146/96 O2 Sat by Pulse 100 Oximetry 11/26/16 11/26/16 11/26/16 05:42 05:45 05:50 Temperature Pulse Rate 123 H 139 H 109 H Respiratory Rate Blood Pressure 139/80 O2 Sat by Pulse 100 100 Oximetry 11/26/16 11/26/16 11/26/16 05:55 05:59 06:00 Temperature Pulse Rate 102 H 96 H 98 H Respiratory Rate Blood Pressure 141/83 O2 Sat by Pulse 100 100 Oximetry 11/26/16 11/26/16 11/26/16 06:05 06:10 06:12 Temperature Pulse Rate 94 H 90 100 H Respiratory Rate Blood Pressure 145/89 O2 Sat by Pulse 100 100 Oximetry 11/26/16 11/26/16 11/26/16 06:15 06:20 06:25 Temperature Pulse Rate 90 92 H 85 Respiratory Rate Blood Pressure O2 Sat by Pulse 100 100 100 Oximetry 11/26/16 11/26/16 11/26/16 06:30 06:35 06:40 Temperature Pulse Rate 81 92 H 89 Respiratory Rate Blood Pressure 133/63 O2 Sat by Pulse 100 99 100 Oximetry 11/26/16 11/26/16 11/26/16 06:43 06:45 06:50 Temperature Pulse Rate 94 H 98 H 94 H Respiratory Rate Blood Pressure 121/66 O2 Sat by Pulse 100 99 Oximetry 11/26/16 11/26/16 11/26/16 06:55 06:58 07:00 Temperature Pulse Rate 98 H 95 H 97 H Respiratory Rate Blood Pressure 112/59 O2 Sat by Pulse 100 100 Oximetry 11/26/16 11/26/16 11/26/16 07:05 07:10 07:13 Temperature Pulse Rate 91 H 101 H 99 H Respiratory Rate Blood Pressure 110/75 O2 Sat by Pulse 100 100 Oximetry 11/26/16 11/26/16 11/26/16 07:15 07:20 07:25 Temperature Pulse Rate 97 H 99 H 109 H Respiratory Rate Blood Pressure O2 Sat by Pulse 100 99 98 Oximetry 11/26/16 11/26/16 11/26/16 07:28 07:30 07:35 Temperature Pulse Rate 104 H 104 H 105 H Respiratory Rate Blood Pressure 112/64 O2 Sat by Pulse 99 100 Oximetry 11/26/16 11/26/16 11/26/16 07:40 07:42 07:45 Temperature Pulse Rate 104 H 106 H 107 H Respiratory Rate Blood Pressure 105/57 O2 Sat by Pulse 99 100 Oximetry 11/26/16 11/26/16 11/26/16 07:50 07:55 07:57 Temperature Pulse Rate 106 H 104 H 108 H Respiratory Rate Blood Pressure 109/61 O2 Sat by Pulse 99 98 Oximetry 11/26/16 11/26/16 11/26/16 08:00 08:05 08:10 Temperature Pulse Rate 114 H 110 H 104 H Respiratory Rate Blood Pressure O2 Sat by Pulse 98 98 99 Oximetry 11/26/16 11/26/16 11/26/16 08:12 08:15 08:20 Temperature Pulse Rate 109 H 107 H 108 H Respiratory Rate Blood Pressure 111/65 O2 Sat by Pulse 98 99 Oximetry 11/26/16 11/26/16 11/26/16 08:25 08:27 08:30 Temperature Pulse Rate 109 H 111 H 107 H Respiratory Rate Blood Pressure 106/64 O2 Sat by Pulse 99 99 Oximetry 11/26/16 11/26/16 11/26/16 08:35 08:40 08:44 Temperature Pulse Rate 113 H 115 H 110 H Respiratory Rate Blood Pressure 117/72 O2 Sat by Pulse 98 99 Oximetry 11/26/16 08:45 Temperature Pulse Rate 100 H Respiratory Rate Blood Pressure O2 Sat by Pulse 99 Oximetry - Exam Breasts: normal Cardiovascular: Regular rate Lungs: Clear to auscultation, Normal air movement Abdomen: Present: normal appearance, soft, normal bowel sounds Vulva: both: normal Uterus: Present: normal FHR: auscultation normal, category 1 Uterine Contraction Monitor Mode: Internal Cervical Dilatation: 6 Cervical Effacement Percentage: 80 station: -1 Uterine Contraction Frequency (min): 3-4 Uterine Contraction Duration: 60-80 Uterine Contraction Pattern: Regular Uterine Tone Measurement Phase: Contraction Uterine Contraction Intensity: Moderate Extremities: normal Deep Tendon Reflex Grade: Normal +2 - Labs Labs: Abnormal Labs 11/26/16 03:30 MCV 69 L MCH 23 L RDW 15.3 H Laboratory Results - last 24 hr 11/26/16 11/26/16 11/26/16 03:30 03:30 06:15 WBC 6.0 RBC 5.01 Hgb 11.7 10.4 Hct 34.8 31.4 MCV 69 L MCH 23 L MCHC 34 RDW 15.3 H Plt Count 209 Blood Type O POSITIVE Antibody Screen Negative
[2016-11-26] MEDS ORDERED: METHERGINE IM ONE (10:30)
--- NOTE | 2016-11-26 10:30 | Procedure Note ---
OB Delivery Note - Delivery Date of Delivery: 11/26/16 ( Male) House Furnishings Supervisor: JALEN HAHN Estimated blood loss: other (350) - Vaginal Delivery presentation: vertex Delivery position: OA (SMOOTH) Intrapartum events: none Delivery induction: none Delivery augmentation: rupture of membranes, pitocin Delivery monitor: external FHT, internal uterine Route of delivery: Delivery placenta: spontaneous Delivery cord: 3 umbilical vessels Episiotomy: none Delivery laceration: none Anesthesia: epidural Delivery comments: male del over intact perineum, SMOOTH. placed on mother's abd,dried and stimulated.3 vessel cord clamped and cut. Cord blood collected.Placenta del intact and complete. Fundus initially firm and bleeding scant, after a few minutes uterus boggy w/ increasein bleeding. firmed with massage, will give IM methergine d/t grandmultiparity. EBL 350, 's apgars 8/9, wt 5#15oz. mother and infant LDR stable. - A at 1 minute: 8 at 5 minutes: 9 Infant Gender: Male (5#15)
[2016-11-26] MEDS ORDERED: TYLENOL PO PRN (12:32)
[2016-11-26] MEDS ORDERED: BENADRYL PO PRN (12:32)
[2016-11-26] MEDS ORDERED: DULCOLAX PR PRN (12:32)
[2016-11-26] MEDS ORDERED: ZOFRAN IV PRN (12:32)
[2016-11-26] MEDS ORDERED: LANSINOH TP PRN (12:32)
[2016-11-26] MEDS ORDERED: SODIUM CHLORIDE FLUSH SYRINGE 10 ML IV SCH (12:32)
[2016-11-26] MEDS ORDERED: MILK OF MAGNESIA PO PRN (12:32)
[2016-11-26] MEDS ORDERED: TUCKS PAD TP PRN (12:32)
[2016-11-26] MEDS ORDERED: NORCO 5/325 PO PRN (12:32)
[2016-11-26] MEDS: MOTRIN PO SCH ×2 (12:47→17:38)
[2016-11-26 22:48] LABS: Hematocrit 31.2 % (30.3-42.9); Hemoglobin 10.1 gm/dl (10.1-14.3)
[2016-11-27] MEDS: MOTRIN PO SCH ×3 (00:20→12:06)
[2016-11-27] MEDS ORDERED: BOOSTRIX IM ONE (06:00)
--- NOTE | 2016-11-27 08:03 | Discharge Summary ---
Providers - Providers Date of Admission: 11/26/16 03:20 Date of discharge: 11/27/16 (pt agrees to d/c ) Attending physician: MARIANO ROBLERO Primary care physician: MARIANO ROBLERO Hospitalization Reason for admission: active labor Delivery: Episiotomy: none Laceration: none Incision: normal Other procedures: none complications: none Discharge diagnosis: IUP at term delivered [place] baby: male Hospital course: uncomplicated vaginal delivery Pt w/o complaint VSS FF below umb Lochia small Perineum intact H&H 01/11 drop r/ t blood loss from surgery Pt is asymptomatic Doing well s/p vag delivery P: d/c today with instructions RTO 1 week for son's circ and 4 weeks for PP care Depo prior to d/c as per pt request. Condition at discharge: Good Disposition: DC-01 TO HOME OR SELFCARE Plan - Discharge Medications Prescriptions: Ibuprofen [Motrin 800 MG tab] 800 mg PO Q8HR PRN #30 tablet PRN Reason: Pain Lidocain2.5%/Prilocai2.5% [Emla] 5 gm TP ONCE PRN #1 tube PRN Reason: Pain - Provider Discharge Summary Activity: routine, no sex for 6 weeks, no heavy lifting 4 weeks, no strenuous exercise Diet: routine Instructions: routine Additional instructions: [] Smoking cessation referral if applicable(refer to patient education folder for contact #) [] Refer to [facility]'s [facility] Booklet Call your doctor immediately for: * Fever > 100.5 * Heavy vaginal bleeding ( >1 pad per hour) * Severe persistent headache * Shortness of breath * Reddened, hot, painful area to leg or breast * Drainage or odor from incision. * Keep incision clean and dry at all times and follow doctor's instructions regarding bathing/showering - Follow up plan Follow up: MARIANO ROBLERO MD [Primary Care Provider] - 12/27/16 (Congratulations! Please call [phone] to schedule your visit in 4 weeks and your son's circumcision in one week. Bring the EMLA cream with you to his visit. Take medication as prescribed. Call with concerns. )
[2016-11-27] MEDS ORDERED: DEPO-PROVERA (CONTRACEPTION) IM ONE (08:04)
[2016-11-27] MEDS ORDERED: PRENATAL VITAMIN PO SCH (10:00)
[2016-11-27] MEDS ORDERED: DEPO-PROVERA (CONTRACEPTION) IM NR (12:00)
[2016-11-27 17:29] VITALS: BP 100/64
== END 2016-11-27 16:00 | disposition home or self-care (01) | DRG 775 ==
LOC: TRG 02:50 → LD 03:20 → OB 12:25
PROVIDERS: ADMIT Obstetrics & Gynecology; ATTEND Obstetrics & Gynecology
PROC: 10E0XZZ Delivery of Products of Conception, External Approach (ICD-10-PCS; 2016-11-26)
PROC: 10907ZC Drainage of Amniotic Fluid, Therapeutic from Products of Conception, Via Natural or Artificial Opening (ICD-10-PCS; 2016-11-26)
PROC: 3E0S3CZ (ICD-10-PCS; 2016-11-26)
PROC: 00HU33Z Insertion of Infusion Device into Spinal Canal, Percutaneous Approach (ICD-10-PCS; 2016-11-26)
PROC: 3E0234Z Introduction of Serum, Toxoid and Vaccine into Muscle, Percutaneous Approach (ICD-10-PCS; principal; 2016-11-27)
DX: O80 Encounter for full-term uncomplicated delivery (principal); Z37.0 Single live birth; Z3A.37 37 weeks gestation of pregnancy; Z23 Encounter for immunization
CPT/HCPCS: 36415; 85014; 85018; 85027; 86592; 86850; 86900; 86901; J1050; J2210; J2405; J2590; J7120

== ENCOUNTER 2017-06-08 11:21 | Emergency (ER) | payer MEDICAID, OTHER ==
[2017-06-08 12:11] VITALS: BP 135/68
[2017-06-08] MEDS ORDERED: DECADRON ONE (14:32)
[2017-06-08] MEDS ORDERED: DECADRON IM ONE (14:35)
--- NOTE | 2017-06-08 14:50 | Emergency Department Report ---
ED General Adult HPI - General Chief complaint: Upper Respiratory Infection Stated complaint: SORE THROAT Time Seen by Provider: 06/08/17 14:45 Source: patient Mode of arrival: Ambulatory Limitations: No Limitations - History of Present Illness Initial comments: Patient is a 26-year-old female at 8 weeks who presents with cough and body aches, sore throat and headaches have been going on for the last couple of days. Patient states that she spent trying Tylenol for symptoms and has been having intermittent relief. Patient's body pain as a 4 out of 10 today could have a pain is intermittent nothing really makes it better or worse. Patient states that she is also having headaches. Patient denies having a vaginal discharge or any dysuria. - Related Data Previous Rx's Medication Instructions Recorded Last Taken Type Acetaminophen 1,000 mg PO Q6HR PRN #60 tablet 06/08/17 Unknown Rx Allergies Allergy/AdvReac Type Severity Reaction Status Date / Time No Known Allergies Allergy Verified 02/18/17 13:52 ED Review of Systems ROS: Stated complaint: SORE THROAT Other details as noted in HPI Constitutional: denies: chills, fever Eyes: denies: eye pain, eye discharge, vision change ENT: denies: ear pain, throat pain Respiratory: denies: cough, shortness of breath, wheezing Cardiovascular: denies: chest pain, palpitations Endocrine: no symptoms reported Gastrointestinal: denies: abdominal pain, nausea, diarrhea Genitourinary: denies: urgency, dysuria, discharge Musculoskeletal: denies: back pain, joint swelling, arthralgia Skin: denies: rash, lesions Neurological: denies: headache, weakness, paresthesias Psychiatric: denies: anxiety, depression Hematological/Lymphatic: denies: easy bleeding, easy bruising ED Past Medical Hx - Past Medical History Hx Hypertension: No Hx Congestive Heart Failure: No Hx Diabetes: No Hx Deep Vein Thrombosis: No Hx Renal Disease: No Hx Sickle Cell Disease: Yes (Trait only) Hx Seizures: No Hx Asthma: No Hx COPD: No Hx HIV: No - Surgical History Additional Surgical History: hernia repair, four vaginal deliveries - Social History Smoking Status: Never Smoker Substance Use Type: None - Medications Home Medications: Home Medications Medication Instructions Recorded Confirmed Last Taken Type Acetaminophen 1,000 mg PO Q6HR PRN #60 tablet 06/08/17 Unknown Rx ED Physical Exam - General Limitations: No Limitations General appearance: alert, in no apparent distress - Head Head exam: Present: atraumatic, normocephalic - Eye Eye exam: Present: normal appearance - ENT ENT exam: Present: mucous membranes moist - Neck Neck exam: Present: normal inspection - Respiratory Respiratory exam: Present: normal lung sounds bilaterally. Absent: respiratory distress - Cardiovascular Cardiovascular Exam: Present: regular rate, normal rhythm. Absent: systolic murmur, diastolic murmur, rubs, gallop - GI/Abdominal GI/Abdominal exam: Present: soft, normal bowel sounds - Extremities Exam Extremities exam: Present: normal inspection - Back Exam Back exam: Present: normal inspection - Neurological Exam Neurological exam: Present: alert, oriented X3 - Psychiatric Psychiatric exam: Present: normal affect, normal mood - Skin Skin exam: Present: warm, dry, intact, normal color. Absent: rash ED Course Vital Signs 06/08/17 12:08 Temperature 98.4 F Pulse Rate 105 H Respiratory 22 Rate Blood Pressure 135/68 O2 Sat by Pulse 99 Oximetry ED Medical Decision Making - Medical Decision Making Chief medical diagnosis: Viral pharyngitis Differential medical diagnosis: Influenza, adenovirus infection I will give patient oral decadron and I will have patient f/u with Primary care doctor. Discussed plan with patient and patient agrees additional verbal discharge instructions were given. Critical care attestation.: If time is entered above; I have spent that time in minutes in the direct care of this critically ill patient, excluding procedure time. ED Disposition Clinical Impression: Viral pharyngitis Disposition: DC-01 TO HOME OR SELFCARE Is pt being admited?: No Does the pt Need Aspirin: No Condition: Stable Instructions: Pharyngitis (ED) Prescriptions: Acetaminophen 1,000 mg PO Q6HR PRN #60 tablet PRN Reason: Pain [facility]Other[facility] - 3-5 Days
== END 2017-06-08 15:02 | disposition home or self-care (01) ==
LOC: ED 11:21
DX: O99.511 Diseases of the respiratory system complicating pregnancy, first trimester (principal); J02.9 Acute pharyngitis, unspecified; Z3A.08 8 weeks gestation of pregnancy
CPT/HCPCS: 96372; 99282; J1100

== ENCOUNTER 2017-08-21 15:56 | Emergency (ER) | payer SELFPAY ==
[2017-08-21 16:23] LABS: Bilirubin,Urine NEG (Negative); Blood,Urine NEG (Negative); Color,Urine Yellow (Yellow); Mucus,Urine FEW /HPF; Protein,Urine <15 mg/dL mg/dL (Negative); Urobilinogen,Urine < 2.0 mg/dL (<2.0)
[2017-08-21 16:28] LABS: HCG Qualitative,Urine Negative (Negative)
--- NOTE | 2017-08-21 16:44 | Emergency Department Report ---
ED Abdominal Pain HPI - General Chief Complaint: Abdominal Pain Stated Complaint: ABD PAIN Time Seen by Provider: 08/21/17 16:29 Source: patient Mode of arrival: Ambulatory Limitations: No Limitations - History of Present Illness Initial Comments: Patient reports abdominal cramping pain that started 1 1/2 weeks ago with nausea. She denies any dysuria or vaginal discharge. MD Complaint: abdominal pain Onset/Timin -: days(s) Location: periumbilical Radiation: R flank Migration to: no migration Severity: moderate, severe Severity scale (0 -10): 8 Quality: cramping Consistency: constant Improves With: rest Worsens With: movement Context: other (none) Associated Symptoms: nausea. denies: vomiting, fever, chills, constipation, dysuria, hematemesis, hematochezia, melena, hematuria, anorexia, syncope Treatments Prior to Arrival: other (none) - Related Data LMP (females 10-50): other (9 months ago) Previous Rx's Medication Instructions Recorded Last Taken Type Acetaminophen 1,000 mg PO Q6HR PRN #60 tablet 06/08/17 Unknown Rx Ibuprofen 800 mg PO TID #30 tablet 08/21/17 Unknown Rx Ondansetron [Zofran TAB] 4 mg PO Q8HR PRN #6 tablet 08/21/17 Unknown Rx Allergies Allergy/AdvReac Type Severity Reaction Status Date / Time No Known Allergies Allergy Verified 08/21/17 15:57 ED Review of Systems ROS: Stated complaint: ABD PAIN Other details as noted in HPI ED Past Medical Hx - Past Medical History Hx Hypertension: No Hx Congestive Heart Failure: No Hx Diabetes: No Hx Deep Vein Thrombosis: No Hx Renal Disease: No Hx Sickle Cell Disease: Yes (Trait only) Hx Seizures: No Hx Asthma: No Hx COPD: No Hx HIV: No - Surgical History Additional Surgical History: hernia repair, four vaginal deliveries - Social History Smoking Status: Never Smoker Substance Use Type: None - Medications Home Medications: Home Medications Medication Instructions Recorded Confirmed Last Taken Type Acetaminophen 1,000 mg PO Q6HR PRN #60 tablet 06/08/17 Unknown Rx Ibuprofen 800 mg PO TID #30 tablet 08/21/17 Unknown Rx Ondansetron [Zofran TAB] 4 mg PO Q8HR PRN #6 tablet 08/21/17 Unknown Rx ED Physical Exam - General Limitations: No Limitations ED Course Vital Signs 08/21/17 08/21/17 15:58 17:56 Temperature 98.2 F Pulse Rate 94 H Respiratory 18 18 Rate Blood Pressure 130/85 O2 Sat by Pulse 98 99 Oximetry - Reevaluation(s) Reevaluation #1: 08/21/17 16:43 laboratory and radiology studies ordered ED Medical Decision Making - Lab Data Lab Results 08/21/17 Range/Units 16:16 Urine Color Yellow (Yellow) Urine Turbidity Clear (Clear) Urine pH 5.0 (5.0-7.0) Ur Specific [place] 1.015 (1.003-1.030) Urine Protein <15 mg/dl (Negative) mg/dL Urine Glucose (UA) Neg (Negative) mg/dL Urine Ketones Neg (Negative) mg/dL Urine Blood Neg (Negative) Urine Nitrite Neg (Negative) Urine Bilirubin Neg (Negative) Urine Urobilinogen < 2.0 (<2.0) mg/dL Ur Leukocyte Esterase Neg (Negative) Urine WBC (Auto) 1.0 (0.0-6.0) /HPF Urine RBC (Auto) 1.0 (0.0-6.0) /HPF U Epithel Cells (Auto) 4.0 (0-13.0) /HPF Urine Mucus Few /HPF Urine HCG, Qual Negative (Negative) Temp Pulse Resp BP Pulse Ox 98.2 F 94 H 18 130/85 99 08/21/17 15:58 08/21/17 15:58 08/21/17 17:56 08/21/17 15:58 08/21/17 17:56 - Radiology Data Radiology results: image reviewed TECHNIQUE: Standard ultrasound of the abdomen PRIORS: None. FINDINGS: Examination of the gallbladder demonstrates no evidence for gallstones, distention, wall thickening, or pericholecystic fluid. No sonographic Mazariegos's sign is elicited. Common bile duct is normal in diameter measuring 3.2 mm. The liver is normal and homogeneous in echogenicity without focal abnormality or intrahepatic biliary dilatation. The pancreas is normal in thickness without focal abnormality or pancreatic duct dilatation. The spleen is normal in length measuring 9.5 cm and homogeneous in echogenicity without focal abnormalities. Examination of the kidneys demonstrates both to be normal in size and have normal cortical echogenicity and thickness. The right and left kidneys measure 10.4 cm and 10.4 cm in craniocaudal length, respectively. No evidence for calculi, hydronephrosis, or solid mass is seen in either kidney. The inferior vena cava and aorta are normal. Maximum diameter of the aorta is 1.3 cm in its proximal portion. IMPRESSION: Normal ultrasound of the abdomen. EXAM: US PELVIC COMPLETE HISTORY: abdominal pain and cramping. LMP unknown TECHNIQUE: Ultrasound of the pelvis using transabdominal and transvaginal imaging PRIORS: None. FINDINGS: Uterus: Uterus is normal in size and normal and homogeneous in echogenicity without focal fibroid formation. The uterus measures 8.7 x 4.7 x 6.1 cm in size. Endometrial stripe: Normal and uniform in thickness measuring 4.9 mm. Ovaries: Both ovaries appear normal in size and echogenicity with normal blood flow bilaterally. The right ovary measures 4.3 x 2.5 x 4.0 cm and the left ovary measures 2.1 x 1.4 x 2.6 cm in size. There is an anechoic benign-appearing cyst in the right ovary measuring 2.6 cm. Other: There is no evidence for solid adnexal mass or free fluid in the cul-de-sac seen. IMPRESSION: Negative pelvic ultrasound. Anechoic cyst in the right ovary which has benign characteristics. - Medical Decision Making During the course of ED, laboratory and radiology studies were ordered. The radiology studies detected normal ultrasound of the abdomen and negative pelvic ultrasound. Anechoic cyst in the right ovary which has benign characteristics. Patient was sent home with prescriptions for Zofran and Ibuprofen, instructed to follow up with the selective referral given at discharge, she verbalized understanding - Differential Diagnosis Abdominal Pain, Right Ovarian Cyst, Nausea Critical care attestation.: If time is entered above; I have spent that time in minutes in the direct care of this critically ill patient, excluding procedure time. ED Disposition Clinical Impression: Nausea Ovarian cyst Qualifiers: Laterality: right Qualified Code(s): N83.201 - Unspecified ovarian cyst, right side Abdominal pain Qualifiers: Abdominal location: periumbilical Qualified Code(s): R10.33 - Periumbilical pain Disposition: TO HOME OR SELFCARE Is pt being admited?: No Does the pt Need Aspirin: No Condition: Stable Instructions: Abdominal Pain (ED), Ovarian Cyst (ED), Acute Nausea and Vomiting (ED) Additional Instructions: Take medication as directed. Follow up with the selective referral given at discharge. Prescriptions: Ibuprofen 800 mg PO TID #30 tablet Ondansetron [Zofran TAB] 4 mg PO Q8HR PRN #6 tablet PRN Reason: Nausea Referrals: PRIMARY CAREMD [Primary Care Provider] - 3-5 Days RENAN JONES MD [Staff Physician] - 3-5 Days NETTIE HARRIS MD [Staff Physician] - 3-5 Days Forms: Work/School Release Form(ED) Time of Disposition: 18:24
--- NOTE | 2017-08-21 18:04 | Ultrasound Report ---
FINAL REPORT EXAM: US ABDOMEN COMPLETE HISTORY: abdominal cramping TECHNIQUE: Standard ultrasound of the abdomen PRIORS: None. FINDINGS: Examination of the gallbladder demonstrates no evidence for gallstones, distention, wall thickening, or pericholecystic fluid. No sonographic Mazariegos's sign is elicited. Common bile duct is normal in diameter measuring 3.2 mm. The liver is normal and homogeneous in echogenicity without focal abnormality or intrahepatic biliary dilatation. The pancreas is normal in thickness without focal abnormality or pancreatic duct dilatation. The spleen is normal in length measuring 9.5 cm and homogeneous in echogenicity without focal abnormalities. Examination of the kidneys demonstrates both to be normal in size and have normal cortical echogenicity and thickness. The right and left kidneys measure 10.4 cm and 10.4 cm in craniocaudal length, respectively. No evidence for calculi, hydronephrosis, or solid mass is seen in either kidney. The inferior vena cava and aorta are normal. Maximum diameter of the aorta is 1.3 cm in its proximal portion. IMPRESSION: Normal ultrasound of the abdomen.
--- NOTE | 2017-08-21 18:17 | Ultrasound Report ---
FINAL REPORT EXAM: US PELVIC COMPLETE HISTORY: abdominal pain and cramping. LMP unknown TECHNIQUE: Ultrasound of the pelvis using transabdominal and transvaginal imaging PRIORS: None. FINDINGS: Uterus: Uterus is normal in size and normal and homogeneous in echogenicity without focal fibroid formation. The uterus measures 8.7 x 4.7 x 6.1 cm in size. Endometrial stripe: Normal and uniform in thickness measuring 4.9 mm. Ovaries: Both ovaries appear normal in size and echogenicity with normal blood flow bilaterally. The right ovary measures 4.3 x 2.5 x 4.0 cm and the left ovary measures 2.1 x 1.4 x 2.6 cm in size. There is an anechoic benign-appearing cyst in the right ovary measuring 2.6 cm. Other: There is no evidence for solid adnexal mass or free fluid in the cul-de-sac seen. IMPRESSION: Negative pelvic ultrasound. Anechoic cyst in the right ovary which has benign characteristics.
[2017-08-21 18:33] VITALS: BP 111/73
== END 2017-08-21 18:33 | disposition home or self-care (01) ==
LOC: ED 15:56
DX: N83.201 Unspecified ovarian cyst, right side (principal); D57.3 Sickle-cell trait
CPT/HCPCS: 76700; 76830; 76856; 81001; 81025

== ENCOUNTER 2017-12-07 09:52 | Emergency (ER) | payer MEDICAID ==
[2017-12-07 10:30] VITALS: BP 122/68
[2017-12-07 11:13] LABS: HCG Qualitative,Urine Positive (Negative)
[2017-12-07 11:17] LABS: Bacteria,Urine 4+ /HPF (Negative); Bilirubin,Urine NEG (Negative); Blood,Urine SM (Negative); Color,Urine Yellow (Yellow); Mucus,Urine FEW /HPF; Protein,Urine <15 mg/dL mg/dL (Negative); Urobilinogen,Urine < 2.0 mg/dL (<2.0)
--- NOTE | 2017-12-07 11:29 | Emergency Department Report ---
ED Abdominal Pain HPI - General Chief Complaint: Abdominal Pain Stated Complaint: STOMACH PAIN/BREAST PAIN Source: patient Mode of arrival: Ambulatory Limitations: No Limitations - History of Present Illness Initial Comments: This is a 27-year-old -[place] female who presents with abdominal pain, nausea, tender for 1 week. Patient reports pain is diffuse and cramp sensation as if her period is about to start. Last menstrual period 10/25/2007, A0. Patient reports pain is 4 out of 10 pain scale and intermittent. She reports nausea without vomiting. She is also complaining of tenderness to breast. She is not sure if this is or something she ate. Patient reports pain is not associated with food. She denies vaginal bleeding or vaginal discharge, frequency, urgency, dysuria or fever, and chest pain. MD Complaint: abdominal pain Onset/Timin -: week(s) Location: diffuse Radiation: none Migration to: no migration Severity: moderate Severity scale (0 -10): 4 Quality: cramping Consistency: intermittent Improves With: nothing Worsens With: nothing Associated Symptoms: nausea. denies: vomiting, diarrhea, fever, chills, constipation, dysuria, hematemesis, hematochezia, melena, hematuria, anorexia, syncope - Related Data LMP Date: 10/24/17 Previous Rx's Medication Instructions Recorded Last Taken Type Acetaminophen 1,000 mg PO Q6HR PRN #60 tablet 06/08/17 Unknown Rx Ibuprofen 800 mg PO TID #30 tablet 08/21/17 Unknown Rx Ondansetron [Zofran TAB] 4 mg PO Q8HR PRN #6 tablet 08/21/17 Unknown Rx 21/Iron Fu/Folic Acid 1 each PO DAILY #30 tablet 12/07/17 Unknown Rx [ Complete Caplet] Allergies Allergy/AdvReac Type Severity Reaction Status Date / Time No Known Allergies Allergy Verified 08/21/17 15:57 ED Review of Systems ROS: Stated complaint: STOMACH PAIN/BREAST PAIN Other details as noted in HPI Constitutional: denies: chills, fever Respiratory: denies: cough, shortness of breath, wheezing Cardiovascular: denies: chest pain, palpitations Gastrointestinal: abdominal pain (generalized abdominal cramping), nausea. denies: diarrhea Genitourinary: denies: urgency, dysuria, discharge Skin: denies: rash, lesions Neurological: denies: headache, weakness, paresthesias Psychiatric: denies: anxiety, depression ED Past Medical Hx - Past Medical History Previous Medical History?: Yes Hx Hypertension: No Hx Congestive Heart Failure: No Hx Diabetes: No Hx Deep Vein Thrombosis: No Hx Renal Disease: No Hx Sickle Cell Disease: Yes (Trait only) Hx Seizures: No Hx Asthma: No Hx COPD: No Hx HIV: No - Surgical History Past Surgical History?: Yes Additional Surgical History: hernia repair, four vaginal deliveries - Social History Smoking Status: Never Smoker Substance Use Type: None - Medications Home Medications: Home Medications Medication Instructions Recorded Confirmed Last Taken Type Acetaminophen 1,000 mg PO Q6HR PRN #60 tablet 06/08/17 Unknown Rx Ibuprofen 800 mg PO TID #30 tablet 08/21/17 Unknown Rx Ondansetron [Zofran TAB] 4 mg PO Q8HR PRN #6 tablet 08/21/17 Unknown Rx 21/Iron Fu/Folic Acid 1 each PO DAILY #30 tablet 12/07/17 Unknown Rx [ Complete Caplet] ED Physical Exam - General Limitations: No Limitations General appearance: alert, in no apparent distress - Respiratory Respiratory exam: Present: normal lung sounds bilaterally. Absent: respiratory distress - Cardiovascular Cardiovascular Exam: Present: regular rate, normal rhythm. Absent: systolic murmur, diastolic murmur, rubs, gallop - GI/Abdominal GI/Abdominal exam: Present: soft, tenderness (LUQ tenderness), normal bowel sounds. Absent: organomegaly, mass - Back Exam Back exam: Present: normal inspection - Neurological Exam Neurological exam: Present: alert, oriented X3 - Psychiatric Psychiatric exam: Present: normal affect, normal mood - Skin Skin exam: Present: warm, dry, intact, normal color. Absent: rash ED Course Vital Signs 12/07/17 10:27 Temperature 99 F Pulse Rate 79 Respiratory 18 Rate Blood Pressure 122/68 O2 Sat by Pulse 99 Oximetry ED Medical Decision Making - Lab Data Lab Results 12/07/17 12/07/17 Range/Units 10:38 11:37 HCG, Quant 16218 H (0-4) mIU/mL Urine Color Yellow (Yellow) Urine Turbidity Cloudy (Clear) Urine pH 5.0 (5.0-7.0) Ur Specific [place] 1.012 (1.003-1.030) Urine Protein <15 mg/dl (Negative) mg/dL Urine Glucose (UA) Neg (Negative) mg/dL Urine Ketones Neg (Negative) mg/dL Urine Blood Sm (Negative) Urine Nitrite Neg (Negative) Ur Reducing Substances Not Reportable Urine Bilirubin Neg (Negative) Urine Ictotest Not Reportable Urine Urobilinogen < 2.0 (<2.0) mg/dL Ur Leukocyte Esterase Lg (Negative) Urine WBC (Auto) 28.0 H (0.0-6.0) /HPF Urine RBC (Auto) 6.0 (0.0-6.0) /HPF U Epithel Cells (Auto) 7.0 (0-13.0) /HPF Urine Bacteria (Auto) 4+ (Negative) /HPF Urine Mucus Few /HPF Urine HCG, Qual Positive A (Negative) - Radiology Data Radiology results: report reviewed, image reviewed ULTRASOUND OB LESS THAN 14 WEEKS - TRANSABDOMINAL AND TRANSVAGINAL INDICATION: LUQ tenderness, pelvic pain, cramping. Positive urine hCG. COMPARISON: 08/21/2017. FINDINGS: Transabdominal and transvaginal pelvic sonography performed in this patient with LMP of 10/24/2017 and estimated menstrual age of 6 weeks and 2 days. It demonstrates an anteverted, gravid uterus estimated at 9.3 x 5.5 x 6.3 cm with a single, viable intrauterine gestation with heart rate of 102 beats per minute. Mean crown-rump length of 0.26 cm corresponds to 5 weeks and 6 days. A 0.3 cm yolk sac also seen. A small 1.7 x 1.6 x 1.2 cm subchorionic hemorrhage also identified, endovaginal image 17. Cervix closed. No significant free fluid. Physiologic ovaries, approximately 3.5 x 1.8 x 2.8 cm on the right with a small follicular cyst. A 4 x 2.3 x 3.9 cm left ovary also demonstrates a 1.9 cm cyst, endovaginal image 27. CONCLUSION: 1. Single, live intrauterine gestation with an ultrasound estimated age of 5 weeks and 6 days and TREY of 08/03/2018. 2. Other findings, as above. Thank you for the opportunity to participate in this patient's care. - Medical Decision Making This is a 27 y.o. female presents with abdominal pain, nausea, and tender breast for 1 week. Patient was examined by me in the fast track emergency room. Vitals are normal and patient is in no acute distress. Obtained urinalysis and urine hCG. Positive urine . I obtained OB fetus ultrasound and hCG quant. Quant [id number]. 1. Single, live intrauterine gestation with an ultrasound estimated age of 5 weeks and 6 days and TREY of 08/03/2018. 2. Other findings, as above. Patient instructed to follow up with [facility] for continuance of care. Start complete. Patient discharged home in stable condition. Critical care attestation.: If time is entered above; I have spent that time in minutes in the direct care of this critically ill patient, excluding procedure time. ED Disposition Clinical Impression: confirmed by positive blood test, Nausea and vomiting during Abdominal pain during Qualifiers: Trimester: first trimester Qualified Code(s): O26.891 - Other specified related conditions, first trimester; R10.9 - Unspecified abdominal pain Disposition: TO HOME OR SELFCARE Is pt being admited?: No Does the pt Need Aspirin: No Condition: Stable Instructions: (ED), Morning Sickness (ED) Additional Instructions: Start taking vitamins once a day. Follow-up with [facility] for continued management of . Return to ER if increased vaginal bleeding, abdominal pain, and low back pain. Prescriptions: 21/Iron Fu/Folic Acid [ Complete Caplet] 1 each PO DAILY #30 tablet Referrals: [facility] [Provider Group] - 3-5 Days [facility] [Provider Group] - 3-5 Days Forms: Work/School Release Form(ED) Time of Disposition: 13:43 Print Language: MONTENEGRIN
--- NOTE | 2017-12-07 13:25 | Ultrasound Report ---
ULTRASOUND OB LESS THAN 14 WEEKS - TRANSABDOMINAL AND TRANSVAGINAL INDICATION: LUQ tenderness, pelvic pain, cramping. Positive urine hCG. COMPARISON: 08/21/2017. FINDINGS: Transabdominal and transvaginal pelvic sonography performed in this patient with LMP of 10/24/2017 and estimated menstrual age of 6 weeks and 2 days. It demonstrates an anteverted, gravid uterus estimated at 9.3 x 5.5 x 6.3 cm with a single, viable intrauterine gestation with heart rate of 102 beats per minute. Mean crown-rump length of 0.26 cm corresponds to 5 weeks and 6 days. A 0.3 cm yolk sac also seen. A small 1.7 x 1.6 x 1.2 cm subchorionic hemorrhage also identified, endovaginal image 17. Cervix closed. No significant free fluid. Physiologic ovaries, approximately 3.5 x 1.8 x 2.8 cm on the right with a small follicular cyst. A 4 x 2.3 x 3.9 cm left ovary also demonstrates a 1.9 cm cyst, endovaginal image 27. CONCLUSION: 1. Single, live intrauterine gestation with an ultrasound estimated age of 5 weeks and 6 days and TREY of 08/03/2018. 2. Other findings, as above. Thank you for the opportunity to participate in this patient's care.
== END 2017-12-07 13:48 | disposition home or self-care (01) ==
LOC: ED 09:52
DX: O26.891 Other specified pregnancy related conditions, first trimester (principal); R10.84 Generalized abdominal pain; O21.8 Other vomiting complicating pregnancy; Z3A.01 Less than 8 weeks gestation of pregnancy
CPT/HCPCS: 36415; 76801; 76817; 81001; 81025; 84702

== ENCOUNTER 2018-06-17 10:20 | Outpatient (CLI) | payer MEDICAID ==
[2018-06-17 10:34] VITALS: BP 119/70
[2018-06-17 13:35] LABS: Bacteria,Urine 2+ /HPF (Negative); Bilirubin,Urine NEG (Negative); Blood,Urine NEG (Negative); Color,Urine Yellow (Yellow); Mucus,Urine FEW /HPF; Protein,Urine <15 mg/dL mg/dL (Negative); Urobilinogen,Urine < 2.0 mg/dL (<2.0)
[2018-06-17] MEDS ORDERED: TYLENOL PO NR (13:56)
[2018-06-17] MEDS ORDERED: MACROBID PO NR (13:56)
[2018-06-17 14:25] LABS: Hematocrit 33.3 % (30.3-42.9); Hemoglobin 11.3 gm/dl (10.1-14.3); Mean Corpuscular HGB Conc 34 % (30-34); Mean Corpuscular Volume 75 fl (79-97); Platelet Count 262 K/mm3 (140-440); Red Blood Count 4.42 M/mm3 (3.65-5.03); Red Cell Distribution Width 13.6 % (13.2-15.2)
== END 2018-06-17 15:46 | disposition home or self-care (01) ==
LOC: TRG 10:20
PROVIDERS: ATTEND Obstetrics & Gynecology
DX: O47.03 False labor before 37 completed weeks of gestation, third trimester (principal); Z3A.33 33 weeks gestation of pregnancy
CPT/HCPCS: 36415; 59025; 81001; 85027; 87086

== ENCOUNTER 2018-06-28 23:18 | Outpatient (CLI) | payer MEDICAID ==
[2018-06-29 00:33] VITALS: BP 134/74
[2018-06-29] MEDS ORDERED: VISTARIL PO PRN (00:49)
--- NOTE | 2018-06-29 00:53 | Event Note ---
Date: 06/29/18 SVE unchanged from arrival time to triage; 3. Irregular contractions on TOCO, palpating mild. Category 1 tracing. Patient desires discharge at this time, requesting medication to help her sleep. Vistaril 50mg PO one time now ordered. 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 Pt will keep scheduled office appointment today at 10:30 am. Labor precautions given, patient to return with any change or worsening s/s.
== END 2018-06-29 01:05 | disposition home or self-care (01) ==
LOC: TRG 23:18
PROVIDERS: ATTEND Obstetrics & Gynecology
DX: O62.8 Other abnormalities of forces of labor (principal); Z3A.35 35 weeks gestation of pregnancy
CPT/HCPCS: 59025; Q0177

== ENCOUNTER 2018-07-19 19:21 | Outpatient (CLI) | payer MEDICAID ==
[2018-07-19 19:44] VITALS: BP 125/69
== END 2018-07-19 20:32 | disposition home or self-care (01) ==
LOC: TRG 19:21
PROVIDERS: ATTEND Obstetrics & Gynecology
DX: O47.1 False labor at or after 37 completed weeks of gestation (principal); O26.893 Other specified pregnancy related conditions, third trimester; R10.9 Unspecified abdominal pain; Z3A.38 38 weeks gestation of pregnancy
CPT/HCPCS: 59025

== ENCOUNTER 2018-07-24 08:32 | Inpatient (IN) | payer MEDICAID ==
[2018-07-24] MEDS ORDERED: LACTATED RINGERS 2,000 ML ONE (09:14)
[2018-07-24] MEDS ORDERED: PITOCin/NS 30 UNIT/500ML 30 UNITS/500 ML BAG IV SCH (11:00)
[2018-07-24] MEDS ORDERED: XYLOCAINE 2% INFILTRATI NR (11:00)
[2018-07-24] MEDS ORDERED: PITOCin/NS 20 UNIT/1000ML DRIP 20 UNITS/1,000 ML BAG IV SCH ×2 (11:00→20:00)
[2018-07-24 11:27] LABS: Hematocrit 33.6 % (30.3-42.9); Hemoglobin 11.1 gm/dl (10.1-14.3); Mean Corpuscular HGB Conc 33 % (30-34); Mean Corpuscular Volume 72 fl (79-97); Platelet Count 283 K/mm3 (140-440)
[2018-07-24] MEDS ORDERED: MINERAL OIL PO PRN (11:30)
[2018-07-24] MEDS ORDERED: BRETHINE IVP PRN (11:30)
[2018-07-24] MEDS ORDERED: BRETHINE SUB-Q PRN (11:30)
[2018-07-24] MEDS: SUBLIMAZE IV PRN ×2 (13:13→17:37)
[2018-07-24] MEDS ORDERED: ZOFRAN IV PRN ×2 (14:22→19:45)
[2018-07-24] MEDS ORDERED: STADOL IV ONE (15:00)
[2018-07-24] MEDS: LACTATED RINGERS 1,000 ML IV SCH ×2 (16:01→19:18)
--- NOTE | 2018-07-24 17:58 | History and Physical Report ---
History of Present Illness Date of examination: 07/24/18 Date of admission: 07/24/18 08:32 Chief complaint: scheduled IOL for IUGR per [facility] recommendations History of present illness: Menstrual History Regularity: regular Menses every: 28 days Duration: 5 LMP: 10/24/2017 LMP reliability: definite LMP character: normal test type: urine test Date: 11/12/2017 BC at conception: none Planned ? no EDC Calculations LMP: 07/31/2018 EDC Confirmation: 07/31/2018 Gestational Age: 9 2/7 weeks Past History : 6 Term Births: 5 Premature Births: 0 Living Children: 5 Para: 5 Mult. Births: 0 Prev : 0 Prev. attempt? 0 Aborta: 0 Elect. Ab: 0 Spont. Ab: 0 Ectopics: 0 # 1 Delivery date: 12/13/2010 Weeks Gestation: 36 labor: yes Delivery type: Anesthesia type: epidural Delivery location: [facility] Sex: Male weight: 5-11 Name: Olu # 2 Delivery date: 12/28/2011 Weeks Gestation: 37 Delivery type: Anesthesia type: epidural Delivery location: [facility] Sex: Male weight: 6-6 Name: Vinita # 3 Delivery date: 07/22/2013 Weeks Gestation: 38 Delivery type: Delivery location: [place] Sex: Female weight: 5-12 Name: Malasia # 4 Delivery date: 03/20/2015 Weeks Gestation: 38 Delivery type: Delivery location: [facility] Infant Sex: Male weight: 7-0 # 5 Delivery date: 11/26/2016 Weeks Gestation: 37+3 Delivery type: Vaginal Anesthesia type: epidural Delivery location: [facility] Infant Sex: male weight: 5.94 Comments: none Past Medical History: Reviewed history from 08/21/2014 and no changes required: None Past Surgical History: Reviewed history from 08/21/2014 and no changes required: Hernia repair as a child Past Medical History Abnormal PAP: positive, Yes Uterine Anomaly: negative Social Hx: Patient is single Smoking History: Patient has never smoked. Infection History Hx of STD: none HIV Risk Eval: low risk Partner hx. of genital herpes: no Rash, Viral, or Febrile illness since last LMP? no Varicella/Chicken Pox Status: Immunized Genetic History Congenital Heart Defect: Mom: no Dad: no Myesha Disease: Mom: no Dad: no Thalassemia Mom: no Dad: no Neural Tube Defect Mom: no Dad: no Down's Syndrome Mom: no Dad: no Paco-Sachs Mom: no Dad: no Sickle Cell Disease/Trait Mom: yes Dad: no Hemophilia Mom: no Dad: no Muscular Dystrophy Mom: no Dad: no Cystic Fibrosis Mom: no Dad: no [place] Chorea Mom: no Dad: no Mental Retardation Mom: no Dad: no Fragile X Mom: no Dad: no Other Genetic/Chromosomal Disorder Mom: no Dad: no Child w/other defect Mom: no Dad: no Enviromental Exposures Enviromental Exposures Reviewed Xray Exposure: no Medication, drug, or alcohol use since LMP: no Chemical/Other Exposure: no Exposure to Cat Liter: no Hx of Parvovirus (Fifth Disease): no Occupational Exposure to Children: none Active Medications (reviewed today): None Current Allergies: No known allergies Past History Past Medical History: other (see hpi) Past Surgical History: other (see hpi) 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) Family/Genetic History: other (see hpi) Social history: other (see hpi) - Obstetrical History : 6 Para: 5 Medications and Allergies Allergies Allergy/AdvReac Type Severity Reaction Status Date / Time No Known Allergies Allergy Verified 08/21/17 15:57 Home Medications Medication Instructions Recorded Confirmed Last Taken Type Acetaminophen 1,000 mg PO Q6HR PRN #60 tablet 06/08/17 Unknown Rx Ibuprofen 800 mg PO TID #30 tablet 08/21/17 Unknown Rx Ondansetron [Zofran TAB] 4 mg PO Q8HR PRN #6 tablet 08/21/17 Unknown Rx 21/Iron Fu/Folic Acid 1 each PO DAILY #30 tablet 12/07/17 Unknown Rx [ Complete Caplet] Acetaminophen/Codeine [Tylenol 1 tab PO Q6H PRN #8 tab 03/02/18 Unknown Rx /Codeine # 3 tab] Amoxicillin 500 mg PO BID #10 capsule 03/02/18 Unknown Rx Active Meds: Active Medications Ephedrine Sulfate (Ephedrine Sulfate) 10 mg IV Q2M PRN PRN Reason: Hypotension Fentanyl (Sublimaze) 100 mcg IV Q2H PRN PRN Reason: Labor Pain Last Admin: 07/24/18 13:13 Dose: 100 mcg Documented by: Oxytocin/Sodium Chloride (Pitocin/Ns 20 Unit/1000ml Drip) 20 units in 1,000 mls @ 125 mls/hr IV DIRECT NARA Oxytocin/Sodium Chloride (Pitocin/Ns 30 Unit/500ml) 30 units in 500 mls @ 4 mls/hr IV TITR NARA; Protocol Last Titration: 07/24/18 16:02 Dose: 18 ml/hr, 18 mls/hr Documented by: Lactated Ringer's (Lactated Ringers) 1,000 mls @ 125 mls/hr IV DIRECT NARA Last Admin: 07/24/18 16:01 Dose: 125 mls/hr Documented by: Lidocaine (Xylocaine 2%) 20 ml INFILTRATI ONCE NR Stop: 07/25/18 10:59 Mineral Oil (Mineral Oil) 30 ml PO QHS PRN PRN Reason: Constipation Ondansetron HCl (Zofran) 4 mg IV Q6H PRN PRN Reason: Nausea And Vomiting Last Admin: 07/24/18 14:35 Dose: 4 mg Documented by: Terbutaline Sulfate (Brethine) 0.25 mg SUB-Q ONCE PRN PRN Reason: Hyperstimulation/Hypertonicity Terbutaline Sulfate (Brethine) 0.25 mg IVP ONCE PRN PRN Reason: Hyperstimulation/Hypertonicity Review of Systems All systems: negative Genitourinary: contractions - Vital Signs Vital signs: Vital Signs Temp Pulse BP 97.6 F 101 H 135/92 07/24/18 09:03 07/24/18 09:03 07/24/18 09:03 Temp Pulse Resp BP Pulse Ox 98.7 F 80 18 129/81 95 07/24/18 11:40 07/24/18 16:07 07/24/18 11:40 07/24/18 16:07 07/24/18 12:07 - Physical Exam Breasts: Positive: normal Cardiovascular: Regular rate, Normal S1, Normal S2 Abdomen: Positive: normal appearance, soft, normal bowel sounds. Negative: distention, tenderness Genitourinary (Female): Positive: normal external genitalia, normal perenium Vulva: both: normal Vagina: Positive: normal moisture. Negative: discharge Cervix: Negative: lesion, discharge Uterus: Positive: normal size, normal contour Adnexa: both: normal Anus/Rectum: Positive: normal perianal skin, heme negative. Negative: rectal mass, hemorrhoids Extremities: Positive: normal Deep Tendon Reflex Grade: Normal +2 - Obstetrical FHR: auscultation normal Cervical Dilatation: 4.5 Cervical Effacement Percentage: 90 station: -1 Uterine Contraction Pattern: Regular Uterine Tone Measurement Phase: Contraction Uterine Contraction Intensity: Moderate Results Result Diagrams: 07/24/18 08:53 Abnormal lab results 07/24/18 Range/Units 08:53 MCV 72 L (79-97) fl MCH 24 L (28-32) pg All other labs normal. Assessment and Plan Scheduled IOL for IUGR per [facility] recommendation. Routine admission orders placed on arrival. GBS negative. Pitocin currently infusing at 18 mu/min. Regular contractions on TOCO, palpating moderate. Category 1 tracing at this time. SVE 4 .5/90/-1, BBOW. Patient requests epidural, bolusing LR at this time. Plans for AROM once patient is comfortable with epidural, anticipate .
[2018-07-24] MEDS ORDERED: NARCAN 2 MG/2 ML IV PRN (18:23)
--- NOTE | 2018-07-24 18:23 | Anesthesia Day of Surgery ---
Anesthesia Day of Surgery - Day of Surgery Patient Examined: Yes Patient H&P Reviewed: Yes Patient is NPO: Yes Beta Blockers: No Cardiac Clearance: No Pulmonary Clearance: No Hayden's Test: N/A
--- NOTE | 2018-07-24 18:23 | Anesthesia Consultation ---
Anesthesia Consult and Med Hx - Airway Anesthetic Teeth Evaluation: Good ROM Head & Neck: Adequate Mental/Hyoid Distance: Adequate Mallampati Class: Class II Intubation Access Assessment: Good - Pulmonary Exam CTA: Yes - Cardiac Exam Cardiac Exam: RRR - Pre-Operative Health Status ASA Pre-Surgery Classification: ASA2 Proposed Anesthetic Plan: Epidural - Pulmonary Hx Asthma: Yes (at childhood) COPD: No Hx Pneumonia: No - Cardiovascular System Hx Hypertension: No - Central Nervous System Hx Seizures: No Hx Psychiatric Problems: No - Endocrine Hx Renal Disease: No Hx End Stage Renal Disease: No Hx Hypothyroidism: No Hx Hyperthyroidism: No - Hematic Hx Anemia: Yes (no meds at this time) Hx Sickle Cell Disease: Yes (SST) - Other Systems Hx Alcohol Use: No Hx Cancer: No
[2018-07-24] MEDS ORDERED: MARCAINE 0.25% INFILTRATI ONE (18:27)
[2018-07-24] MEDS ORDERED: fentaNYL-BUPIV 2 MCG/ML-0.125% 200 MCG/100 ML BAG EPIDURAL SCH (19:00)
[2018-07-24] MEDS ORDERED: TUCKS PAD TP PRN (19:45)
[2018-07-24] MEDS ORDERED: PHENERGAN PO PRN (19:45)
[2018-07-24] MEDS ORDERED: LANSINOH TP PRN (19:45)
[2018-07-24] MEDS ORDERED: BENADRYL PO PRN (19:45)
[2018-07-24] MEDS ORDERED: MILK OF MAGNESIA PO PRN (19:45)
[2018-07-24] MEDS ORDERED: DULCOLAX PR PRN (19:45)
[2018-07-24] MEDS ORDERED: TYLENOL PO PRN (19:45)
[2018-07-24] MEDS ORDERED: SODIUM CHLORIDE FLUSH SYRINGE 10 ML IV SCH (20:00)
--- NOTE | 2018-07-24 20:04 | Procedure Note ---
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 NICU called to delivery for light meconium fluid. Nuchar cord x1 noted after delivery of head, loose, reduced without difficulty. Infant placed on mother's abdomen, spontaneous cry noted, drying and stimulation provided. Cord clamped x2 and cut, cord blood collected and sent to lab. taken to warmer by RN for assessment. Placenta delivered complete and intact, appears circumvallate, sent to pathology for IUGR. Fundus is firm, ML, hemostasis achieved. EBL 300. VSSAF. Infant apgars 8/9, weight 5#13. Mother and remain LRD stable. - A at 1 minute: 8 at 5 minutes: 9 Gender: Male (5#13)
[2018-07-24] MEDS ORDERED: ENGERIX-B IM ONE (20:24)
[2018-07-24] MEDS: IBUPROFEN PO SCH (21:10)
[2018-07-25] MEDS: IBUPROFEN PO SCH ×3 (01:15→17:49)
--- NOTE | 2018-07-25 05:53 | Discharge Summary ---
Providers - Providers Date of Admission: 07/24/18 08:32 Date of discharge: 07/25/18 (pt requested d/c today if possible) Attending physician: MARIANO ROBLERO 07/24/18 19:48 Consult to Payment Poster [CONS] Routine Reason For Exam: assistance with , SNS Primary care physician: MARIANO ROBLERO Hospitalization Reason for admission: induction of labor Delivery: Episiotomy: none Laceration: none Incision: normal Other procedures: none complications: none Discharge diagnosis: IUP at term delivered baby: male Hospital course: uncomplicated vaginal delivery Pt resting No c/o voiced Asking for 24hr d/c VSS FF below umb Lochia small Perineum intact H&H pending No s/sx of anemia Doing well s/p vag delivery P: d/c today with instructions RTO 4 weeks PP care Pt desires tubal for BC. Condition at discharge: Good Disposition: DC-01 TO HOME OR SELFCARE - Discharge Diagnoses (1) Spontaneous vaginal delivery Status: Acute Comment: RTO 4 weeks PP care Plan - Provider Discharge Summary Activity: routine, no sex for 6 weeks, no heavy lifting 4 weeks, no strenuous exercise Diet: routine Instructions: routine Additional instructions: [] Smoking cessation referral if applicable(refer to patient education folder for contact #) [] Refer to [facility] Booklet Call your doctor immediately for: * Fever > 100.5 * Heavy vaginal bleeding ( >1 pad per hour) * Severe persistent headache * Shortness of breath * Reddened, hot, painful area to leg or breast * Drainage or odor from incision. * Keep incision clean and dry at all times and follow doctor's instructions regarding bathing/showering - Follow up plan Follow up: MARIANO ROBLERO MD [Primary Care Provider] - 7 Days (Congratulations! Please call [phone] to schedule your visit in 4 weeks and your son's circumcision in 1 week. Bring the EMLA cream with you to his visit. Do NOT use at home. Motrin/ibuprofen for cramping/pain. Call with any questions.)
[2018-07-25] MEDS ORDERED: BOOSTRIX IM ONE (06:00)
[2018-07-25 08:24] LABS: Hematocrit 32.2 % (30.3-42.9); Hemoglobin 10.8 gm/dl (10.1-14.3)
[2018-07-25] MEDS ORDERED: PRENATAL VITAMIN PO SCH (10:00)
[2018-07-25 20:09] VITALS: BP 126/80
== END 2018-07-25 20:30 | disposition home or self-care (01) | DRG 775 ==
LOC: LD 08:32 → OB 22:00
PROVIDERS: ADMIT Obstetrics & Gynecology; ATTEND Obstetrics & Gynecology
PROC: 10E0XZZ Delivery of Products of Conception, External Approach (ICD-10-PCS; principal; 2018-07-24)
PROC: 3E0R3BZ Introduction of Anesthetic Agent into Spinal Canal, Percutaneous Approach (ICD-10-PCS; 2018-07-24)
PROC: 00HU33Z Insertion of Infusion Device into Spinal Canal, Percutaneous Approach (ICD-10-PCS; 2018-07-24)
PROC: 3E033VJ Introduction of Other Hormone into Peripheral Vein, Percutaneous Approach (ICD-10-PCS; 2018-07-24)
DX: O77.0 Labor and delivery complicated by meconium in amniotic fluid (principal); O99.52 Diseases of the respiratory system complicating childbirth; J45.909 Unspecified asthma, uncomplicated; O76 Abnormality in fetal heart rate and rhythm complicating labor and delivery; O69.81X0 Labor and delivery complicated by cord around neck, without compression, not applicable or unspecified; Z3A.38 38 weeks gestation of pregnancy; Z37.0 Single live birth
CPT/HCPCS: 36415; 82962; 85014; 85018; 85027; 86592; 88307; G0378; A6250; J0595; J2405; J2590; J3010; J7120

== ENCOUNTER 2019-07-18 11:19 | Inpatient (IN) | payer MEDICAID ==
[2019-07-18] MEDS ORDERED: LACTATED RINGERS 1,000 ML ONE (12:47)
[2019-07-18 13:32] LABS: Hematocrit 39.4 % (30.3-42.9); Hemoglobin 13.4 gm/dl (10.1-14.3); Mean Corpuscular HGB Conc 34 % (30-34); Mean Corpuscular Volume 81 fl (79-97); Platelet Count 179 K/mm3 (140-440); Red Blood Count 4.88 M/mm3 (3.65-5.03); Red Cell Distribution Width 17.9 % (13.2-15.2)
[2019-07-18 13:37] LABS: Bilirubin,Urine NEG (Negative); Blood,Urine NEG (Negative); Color,Urine Straw (Yellow); Protein,Urine <15 mg/dL mg/dL (Negative); Urobilinogen,Urine < 2.0 mg/dL (<2.0)
[2019-07-18 13:56] LABS: Alanine Aminotransferase 21 units/L (7-56); Uric Acid 5.9 mg/dL (3.5-7.6)
[2019-07-18] MEDS ORDERED: LIDOCAINE (2%) 20 MG/1 ML VIAL 20 ML MDV INFILTRATI ONE (14:29)
[2019-07-18] MEDS ORDERED: fentaNYL 100 MCG/2 ML INJ IV PRN (14:29)
[2019-07-18] MEDS ORDERED: NalbUPHINE 10 MG/1 ML INJ IV PRN (14:29)
[2019-07-18] MEDS ORDERED: MINERAL OIL 30 ML ORAL LIQD PO PRN (14:29)
[2019-07-18] MEDS ORDERED: ePHEDrine SULFATE 50 MG/1 ML INJ IV PRN ×2 (14:29→17:39)
[2019-07-18] MEDS ORDERED: ONDANSETRON 4 MG/2 ML INJ IV PRN (14:29)
[2019-07-18] MEDS ORDERED: TERBUTALINE 1 MG/1 ML INJ SUB-Q PRN (14:29)
[2019-07-18] MEDS ORDERED: TERBUTALINE 1 MG/1 ML INJ IVP PRN (14:29)
[2019-07-18] MEDS ORDERED: BUTORPHANOL 2 MG/1 ML INJ IV PRN ×2 (14:29)
--- NOTE | 2019-07-18 14:52 | Ultrasound Report ---
Limited OB Ultrasound HISTORY: presentation. TECHNIQUE: Grayscale and color imaging performed. COMPARISON: No recent ultrasound is available for comparison. IMPRESSION: There is a single viable intrauterine gestation with cephalic presentation. Heart rate is 134 bpm. Signer Name: Liam Castrejon MD Signed: 07/18/2019 2:48 PM Workstation Name: [id number]
[2019-07-18] MEDS ORDERED: OXYTOCIN DRIP 30 UNITS/500 ML BAG IV SCH ×2 (15:00)
[2019-07-18] MEDS ORDERED: OXYTOCIN 20 UNIT/1000ML DRIP 20 UNITS/1,000 ML BAG IV SCH (15:00)
--- NOTE | 2019-07-18 15:00 | History and Physical Report ---
History of Present Illness Date of examination: 07/18/19 (Elevated BP's @ term) Date of admission: 07/18/2019 Chief complaint: Contractions and elevated BP's in the office. History of present illness: EDC Calculations LMP: 07/31/2018 Past History : 7 Term Births: 6 Premature Births: 0 Living Children: 6 Para: 6 Mult. Births: 0 Prev : 0 Prev. attempt? 0 Aborta: 0 Elect. Ab: 0 Spont. Ab: 0 Ectopics: 0 # 1 Delivery date: 12/13/2010 Weeks Gestation: 36 labor: yes Delivery type: Anesthesia type: epidural Delivery location: [facility] Sex: Male weight: 5-11 Name: Olu # 2 Delivery date: 12/28/2011 Weeks Gestation: 37 Delivery type: Anesthesia type: epidural Delivery location: [facility] Sex: Male weight: 6-6 Name: Vinita # 3 Delivery date: 07/22/2013 Weeks Gestation: 38 Delivery type: Delivery location: [place] Sex: Female weight: 5-12 Name: Malasia # 4 Delivery date: 03/20/2015 Weeks Gestation: 38 Delivery type: Delivery location: [facility] Infant Sex: Male weight: 7-0 # 5 Delivery date: 11/26/2016 Weeks Gestation: 37+3 Delivery type: Vaginal Anesthesia type: epidural Delivery location: [facility] Sex: male weight: 5.94 Comments: none # 6 Delivery date: 07/24/2018 Weeks Gestation: 39 labor: no Delivery type: Delivery location: [facility] Infant Sex: Male weight: 5.81 Past Medical History: Reviewed history from 08/21/2014 and no changes required: None Past Surgical History: Reviewed history from 08/21/2014 and no changes required: Hernia repair as a child Past Medical History 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 Infection History Hx of STD: HPV HIV Risk Eval: no Hepatitis B Risk Eval: low risk Personal hx. of genital herpes: no Partner hx. of genital herpes: no Rash, Viral, or Febrile illness since last LMP? no Genetic History Congenital Heart Defect: Mom: no Dad: no Myesha Disease: Mom: no Dad: no Thalassemia Mom: no Dad: no Neural Tube Defect Mom: no Dad: no Down's Syndrome Mom: no Dad: no Paco-Sachs Mom: no Dad: no Sickle Cell Disease/Trait Mom: yes Dad: no Hemophilia Mom: no Dad: no Muscular Dystrophy Mom: no Dad: no Cystic Fibrosis Mom: no Dad: no [place] Chorea Mom: no Dad: no Mental Retardation Mom: no Dad: no Fragile X Mom: no Dad: no Other Genetic/Chromosomal Disorder Mom: no Dad: no Child w/other defect Mom: no Dad: no Enviromental Exposures Xray Exposure: no Medication, drug, or alcohol use since LMP: no Chemical/Other Exposure: no Exposure to Cat Liter: no Hx of Parvovirus (Fifth Disease): no Occupational Exposure to Children: none Active Medications (reviewed today): PLUS 27-1 MG ORAL TABLET ( VIT-FE FUMARATE-FA) 1 po qd Current Allergies (reviewed today): No known allergies Past History Past Medical History: no pertinent history Past Surgical History: other (Hernia repair as a child. 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 Family/Genetic History: none Social history: no significant social history - Obstetrical History Expected Date of Delivery: 07/26/19 Actual Gestation: 38 Week(s) 6 Day(s) : 7 Para: 6 Hx # Term Pregnancies: 6 Number of Pregnancies: 0 Spontaneous Abortions: 0 Induced : 0 Number of Living Children: 6 Medications and Allergies Allergies Allergy/AdvReac Type Severity Reaction Status Date / Time No Known Allergies Allergy Verified 08/21/17 15:57 Home Medications Medication Instructions Recorded Confirmed Last Taken Type Acetaminophen 1,000 mg PO Q6HR PRN #60 tablet 06/08/17 Unknown Rx Ibuprofen 800 mg PO TID #30 tablet 08/21/17 Unknown Rx Ondansetron [Zofran TAB] 4 mg PO Q8HR PRN #6 tablet 08/21/17 Unknown Rx 21/Iron Fu/Folic Acid 1 each PO DAILY #30 tablet 12/07/17 Unknown Rx [ Complete Caplet] Acetaminophen/Codeine [Tylenol 1 tab PO Q6H PRN #8 tab 03/02/18 Unknown Rx /Codeine # 3 tab] Amoxicillin 500 mg PO BID #10 capsule 03/02/18 Unknown Rx Ibuprofen [Motrin 800 MG tab] 800 mg PO TID PRN #30 tablet 07/25/18 Unknown Rx Lidocain2.5%/Prilocai2.5% [Emla] 5 gm TP PRN #1 tube 07/25/18 Unknown Rx Active Meds: Active Medications Butorphanol Tartrate (Stadol) 1 mg IV Q2H PRN PRN Reason: Pain, Moderate(4-6) LABOR PAIN Butorphanol Tartrate (Stadol) 2 mg IV Q2H PRN PRN Reason: Pain , Severe (7-10) Ephedrine Sulfate (Ephedrine Sulfate) 10 mg IV Q2M PRN PRN Reason: Hypotension Fentanyl (Sublimaze) 100 mcg IV Q2H PRN PRN Reason: Pain,Severe (7-10) LABOR PAIN Oxytocin/Sodium Chloride (Pitocin/Ns 20 Unit/1000ml Drip) 20 units in 1,000 mls @ 125 mls/hr IV DIRECT NARA Oxytocin/Sodium Chloride (Pitocin/Ns 30 Unit/500ml) 30 units in 500 mls @ 1 mls/hr IV TITR NARA; Protocol Oxytocin/Sodium Chloride (Pitocin/Ns 30 Unit/500ml) 30 units in 500 mls @ 2 mls/hr IV TITR NARA; Protocol Lactated Ringer's (Lactated Ringers) 1,000 mls @ 125 mls/hr IV DIRECT NARA Mineral Oil (Mineral Oil) 30 ml PO QHS PRN PRN Reason: Constipation Nalbuphine HCl (Nalbuphine) 10 mg IV Q2H PRN PRN Reason: Pain, Moderate (4-6) Ondansetron HCl (Zofran) 4 mg IV Q8H PRN PRN Reason: Nausea And Vomiting Terbutaline Sulfate (Brethine) 0.25 mg SUB-Q ONCE PRN PRN Reason: Hyperstimulation/Hypertonicity Terbutaline Sulfate (Brethine) 0.25 mg IVP ONCE PRN PRN Reason: Hyperstimulation/Hypertonicity Review of Systems All systems: negative - Vital Signs Vital signs: Vital Signs Pulse BP 109 H 168/109 07/18/19 11:55 07/18/19 11:55 Temp Pulse Resp BP Pulse Ox 107 H 136/86 99 07/18/19 14:32 07/18/19 14:17 07/18/19 14:32 - Physical Exam Breasts: Positive: deferred Cardiovascular: Regular rate, Normal S1, Normal S2 Lungs: Positive: Normal air movement Abdomen: Positive: normal appearance, soft, normal bowel sounds. Negative: distention, tenderness Genitourinary (Female): Positive: normal external genitalia, normal perenium Vulva: both: normal Vagina: Positive: normal moisture. Negative: discharge Cervix: Negative: lesion, discharge Uterus: Positive: normal size, normal contour Anus/Rectum: Positive: normal perianal skin, heme negative. Negative: rectal mass, hemorrhoids Extremities: Deep Tendon Reflex Grade: Normal +2 - Obstetrical FHR: auscultation normal, category 1 Uterine Contraction Monitor Mode: External Cervical Dilatation: 4 Cervical Effacement Percentage: 50 station: -3 Uterine Contraction Pattern: Irregular Uterine Tone Measurement Phase: Resting Uterine Contraction Intensity: Mild Results Result Diagrams: 07/18/19 12:00 07/18/19 12:00 Abnormal lab results 07/18/19 07/18/19 Range/Units 12:00 12:00 RDW 17.9 H (13.2-15.2) % Lactate Dehydrogenase 216 H (91-180) units/L All other labs normal. GBS NEGATIVE HBsAg Screen Negative Negative *1 RPR Non Reactive Non Reactive *2 Rubella Antibodies, IgG 3.96 index Immune >0.99 *3 Non-immune <0.90 Equivocal 0.90 - 0.99 Immune >0.99 ABO Grouping O *4 Rh Factor Positive *5 Please note: Prior records for this patient's ABO / Rh type are not available for additional verification. Antibody Screen Negative Negative *6 WBC 5.7 x10E3/uL 3.4-10.8 *7 RBC 4.66 x10E6/uL 3.77-5.28 *8 Hemoglobin 11.5 g/dL 11.1-15.9 *9 Hematocrit 34.8 % 34.0-46.6 *10 MCV [L] 75 fL 79-97 *11 MCH [L] 24.7 pg 26.6-33.0 *12 MCHC 33.0 g/dL 31.5-35.7 *13 RDW 13.9 % 12.3-15.4 *14 Platelets 345 x10E3/uL 150-450 *15 Neutrophils 59 % Not Estab. *16 Lymphs 32 % Not Estab. *17 Monocytes 6 % Not Estab. *18 Eos 3 % Not Estab. *19 Basos 0 % Not Estab. *20 ! Immature Cells <No Reported Value> *21 Neutrophils (Absolute) 3.4 x10E3/uL 1.4-7.0 *22 Lymphs (Absolute) 1.9 x10E3/uL 0.7-3.1 *23 Monocytes(Absolute) 0.3 x10E3/uL 0.1-0.9 *24 Eos (Absolute) 0.2 x10E3/uL 0.0-0.4 *25 Baso (Absolute) 0.0 x10E3/uL 0.0-0.2 *26 ! Immature Granulocytes 0 % Not Estab. *27 ! Immature Grans (Abs) 0.0 x10E3/uL 0.0-0.1 *28 ! NRBC <No Reported Value> *29 Hematology Comments: <No Reported Value> *30 Tests: (2) Panel 012195 ([id number]) HIV Screen 4th Generation wRfx Non Reactive Non Reactive *31 Tests: (3) HCV Ab w/Rflx to Verification (825508) ! HCV Ab 0.6 s/co ratio 0.0-0.9 *32 Tests: (4) Comment: ([id number]) ! Comment: SPRCS *33 Non reactive HCV antibody screen is consistent with no HCV infection, unless recent infection is suspected or other evidence exists to indicate HCV infection. Tests: (5) Urine Culture, Routine ([id number]) Urine Culture, Routine Final report *34 Tests: (6) Result ([id number]) ! Result 1 MUG *35 Mixed urogenital russ 10,000-25,000 colony forming units per mL Assessment and Plan A: 28 y.o. @ 38.6 wks with elevated BP's in office. Elevated BP's in triage with highest 150's-160's/80-100's. Now for IOL. P: Admit to L&D for IOL d/t elevated BP's @ term. IV bolus for epidural placement. Start Pitocin per protocol. - Patient Problems (1) Elevated blood pressure reading in office without diagnosis of hypertension Current Visit: Yes Status: Acute Plan to address problem: Will continue to monitor blood pressures. Pt is asymptomatic at this time and her labs are normal. No need for magnesium at this time. Will continue to reassess. (2) 38 to 41 weeks gestation of Current Visit: Yes Status: Acute Plan to address problem: Monitor maternal and status.
[2019-07-18] MEDS: LACTATED RINGERS 1,000 ML IV SCH ×2 (16:20→23:28)
[2019-07-18] MEDS ORDERED: fentaNYL-BUPIV 2 MCG/ML-0.125% 200 MCG/100 ML BAG EPIDURAL ONE (17:35)
[2019-07-18] MEDS ORDERED: DEXMEDETOMIDINE 200 MCG/2 ML VIAL IV ONE (17:35)
[2019-07-18] MEDS ORDERED: NALOXONE 2 MG/2 ML INJ IV PRN (17:39)
--- NOTE | 2019-07-18 17:39 | Anesthesia Consultation ---
Anesthesia Consult and Med Hx Date of service: 07/18/19 - Airway Anesthetic Teeth Evaluation: Good ROM Head & Neck: Adequate Mental/Hyoid Distance: Adequate Mallampati Class: Class II Intubation Access Assessment: Probably Good - Pulmonary Exam CTA: Yes - Cardiac Exam Cardiac Exam: RRR - Pre-Operative Health Status ASA Pre-Surgery Classification: ASA3 Proposed Anesthetic Plan: Epidural - Pulmonary Hx Asthma: Yes (childhood) COPD: No Hx Pneumonia: No - Cardiovascular System Hx Hypertension: Yes - Central Nervous System Hx Seizures: No Hx Psychiatric Problems: No - Endocrine Hx Renal Disease: No Hx End Stage Renal Disease: No Hx Hypothyroidism: No Hx Hyperthyroidism: No - Hematic Hx Anemia: Yes (with current ) Hx Sickle Cell Disease: No (trait) - Other Systems Hx Alcohol Use: No Hx Cancer: No
[2019-07-18] MEDS ORDERED: fentaNYL-BUPIV 2 MCG/ML-0.125% 200 MCG/100 ML BAG EPIDURAL SCH (18:00)
--- NOTE | 2019-07-18 18:32 | Progress Note ---
Assessment and Plan A: 28 y.o. @ 38.6 weeks, elevated BP's in office, cervical exam /-3. P: Continue with Pitocin per protocol. Monitor BP's. Anticipate . - Patient Problems (1) Elevated blood pressure reading in office without diagnosis of hypertension Current Visit: Yes Status: Acute (2) 38 to 41 weeks gestation of Current Visit: Yes Status: Acute Subjective - Subjective Date of service: 07/18/19 (Pt comfortable with epidural. ) Principal diagnosis: IUP @ 38.6 wks, elevated BP's in office, IOL Interval history: EDC Calculations LMP: 07/31/2018 Past History : 7 Term Births: 6 Premature Births: 0 Living Children: 6 Para: 6 Mult. Births: 0 Prev : 0 Prev. attempt? 0 Aborta: 0 Elect. Ab: 0 Spont. Ab: 0 Ectopics: 0 # 1 Delivery date: 12/13/2010 Weeks Gestation: 36 labor: yes Delivery type: Anesthesia type: epidural Delivery location: [facility] Infant Sex: Male weight: 5-11 Name: Olu # 2 Delivery date: 12/28/2011 Weeks Gestation: 37 Delivery type: Anesthesia type: epidural Delivery location: [facility] Infant Sex: Male weight: 6-6 Name: Vinita # 3 Delivery date: 07/22/2013 Weeks Gestation: 38 Delivery type: Delivery location: [facility] Sex: Female weight: 5-12 Name: Josy # 4 Delivery date: 03/20/2015 Weeks Gestation: 38 Delivery type: Delivery location: [facility] Infant Sex: Male weight: 7-0 # 5 Delivery date: 11/26/2016 Weeks Gestation: 37+3 Delivery type: Vaginal Anesthesia type: epidural Delivery location: [facility] Sex: male weight: 5.94 Comments: none # 6 Delivery date: 07/24/2018 Weeks Gestation: 39 labor: no Delivery type: Delivery location: [facility] Sex: Male weight: 5.81 Past Medical History: Reviewed history from 08/21/2014 and no changes required: None Past Surgical History: Reviewed history from 08/21/2014 and no changes required: Hernia repair as a child Past Medical History 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 Infection History Hx of STD: HPV HIV Risk Eval: no Hepatitis B Risk Eval: low risk Personal hx. of genital herpes: no Partner hx. of genital herpes: no Rash, Viral, or Febrile illness since last LMP? no Genetic History Congenital Heart Defect: Mom: no Dad: no Myesha Disease: Mom: no Dad: no Thalassemia Mom: no Dad: no Neural Tube Defect Mom: no Dad: no Down's Syndrome Mom: no Dad: no Paco-Sachs Mom: no Dad: no Sickle Cell Disease/Trait Mom: yes Dad: no Hemophilia Mom: no Dad: no Muscular Dystrophy Mom: no Dad: no Cystic Fibrosis Mom: no Dad: no Karely Chorea Mom: no Dad: no Mental Retardation Mom: no Dad: no Fragile X Mom: no Dad: no Other Genetic/Chromosomal Disorder Mom: no Dad: no Child w/other defect Mom: no Dad: no Enviromental Exposures Xray Exposure: no Medication, drug, or alcohol use since LMP: no Chemical/Other Exposure: no Exposure to Cat Liter: no Hx of Parvovirus (Fifth Disease): no Occupational Exposure to Children: none Active Medications (reviewed today): PLUS 27-1 MG ORAL TABLET ( VIT-FE FUMARATE-FA) 1 po qd Current Allergies (reviewed today): No known allergies Objective - Vital Signs Vital Signs: Vital Signs - 12hr 07/18/19 07/18/19 07/18/19 11:55 11:59 12:09 Temperature Pulse Rate 109 H 103 H 108 H Blood Pressure 168/109 159/95 148/98 O2 Sat by Pulse Oximetry 07/18/19 07/18/19 07/18/19 12:14 12:33 13:10 Temperature Pulse Rate 107 H 110 H 96 H Blood Pressure 153/101 143/97 140/89 O2 Sat by Pulse Oximetry 07/18/19 07/18/19 07/18/19 13:15 13:24 13:30 Temperature Pulse Rate 105 H 105 H 105 H Blood Pressure 144/93 149/91 146/93 O2 Sat by Pulse Oximetry 07/18/19 07/18/19 07/18/19 13:45 14:12 14:17 Temperature Pulse Rate 104 H 91 H 103 H Blood Pressure 139/95 136/86 O2 Sat by Pulse 100 99 Oximetry 07/18/19 07/18/19 07/18/19 14:22 14:27 14:32 Temperature Pulse Rate 101 H 100 H 107 H Blood Pressure O2 Sat by Pulse 100 100 99 Oximetry 07/18/19 07/18/19 07/18/19 15:38 15:41 16:50 Temperature 97.9 F Pulse Rate 102 H 102 H Blood Pressure 129/78 142/90 O2 Sat by Pulse Oximetry 07/18/19 07/18/19 07/18/19 16:55 17:21 17:41 Temperature Pulse Rate 103 H 102 H 103 H Blood Pressure 136/81 130/74 O2 Sat by Pulse 99 Oximetry 07/18/19 07/18/19 07/18/19 17:46 17:47 17:49 Temperature Pulse Rate 96 H 100 H 107 H Blood Pressure 148/97 138/92 O2 Sat by Pulse 99 Oximetry 07/18/19 07/18/19 07/18/19 17:51 17:52 17:55 Temperature Pulse Rate 100 H 109 H 115 H Blood Pressure 142/77 141/76 O2 Sat by Pulse 98 Oximetry 07/18/19 07/18/19 07/18/19 17:56 17:58 18:01 Temperature Pulse Rate 126 H 127 H 114 H Blood Pressure 117/56 112/56 O2 Sat by Pulse 99 98 Oximetry 07/18/19 07/18/19 07/18/19 18:05 18:06 18:08 Temperature Pulse Rate 106 H 101 H 94 H Blood Pressure 101/48 119/58 O2 Sat by Pulse 98 Oximetry 07/18/19 07/18/19 07/18/19 18:10 18:11 18:14 Temperature Pulse Rate 96 H 103 H 98 H Blood Pressure 121/58 90/51 O2 Sat by Pulse 98 Oximetry 07/18/19 07/18/19 07/18/19 18:16 18:19 18:21 Temperature Pulse Rate 93 H 110 H 106 H Blood Pressure 111/53 102/55 O2 Sat by Pulse 98 97 Oximetry 07/18/19 07/18/19 07/18/19 18:22 18:25 18:26 Temperature Pulse Rate 103 H 100 H 104 H Blood Pressure 100/50 111/55 O2 Sat by Pulse 97 Oximetry - Exam Breasts: deferred Cardiovascular: Regular rate Lungs: Normal air movement Abdomen: Present: normal appearance Vulva: both: normal Uterus: Present: normal FHR: auscultation normal, category 1 Uterine Contraction Monitor Mode: External Cervical Dilatation: 5 Cervical Effacement Percentage: 50 station: -3 Uterine Contraction Pattern: Irregular Uterine Tone Measurement Phase: Resting Uterine Contraction Intensity: Moderate Extremities: normal Deep Tendon Reflex Grade: Normal +2 - Labs Labs: Abnormal Labs 07/18/19 07/18/19 12:00 12:00 RDW 17.9 H Lactate Dehydrogenase 216 H Laboratory Results - last 24 hr 07/18/19 07/18/19 07/18/19 12:00 12:00 12:00 WBC 6.6 RBC 4.88 Hgb 13.4 Hct 39.4 MCV 81 MCH 28 MCHC 34 RDW 17.9 H Plt Count 179 Creatinine 0.7 Estimated GFR > 60 Uric Acid 5.9 AST 34 ALT 21 Lactate Dehydrogenase 216 H Urine Color Straw Urine Turbidity Hazy Urine pH 6.0 Ur Specific [place] 1.010 Urine Protein <15 mg/dl Urine Glucose (UA) Neg Urine Ketones Neg Urine Blood Neg Urine Nitrite Neg Urine Bilirubin Neg Urine Urobilinogen < 2.0 Ur Leukocyte Esterase Tr Urine WBC (Auto) 1.0 Urine RBC (Auto) 1.0 U Epithel Cells (Auto) 4.0 Blood Type Antibody Screen 07/18/19 12:49 WBC RBC Hgb Hct MCV MCH MCHC RDW Plt Count Creatinine Estimated GFR Uric Acid AST ALT Lactate Dehydrogenase Urine Color Urine Turbidity Urine pH Ur Specific [place] Urine Protein Urine Glucose (UA) Urine Ketones Urine Blood Urine Nitrite Urine Bilirubin Urine Urobilinogen Ur Leukocyte Esterase Urine WBC (Auto) Urine RBC (Auto) U Epithel Cells (Auto) Blood Type O POSITIVE Antibody Screen Negative
[2019-07-18 21:48] LABS: Hematocrit 35.8 % (30.3-42.9); Hemoglobin 12.1 gm/dl (10.1-14.3); Mean Corpuscular HGB Conc 34 % (30-34); Mean Corpuscular Volume 82 fl (79-97); Platelet Count 172 K/mm3 (140-440); Red Blood Count 4.38 M/mm3 (3.65-5.03); Red Cell Distribution Width 17.8 % (13.2-15.2)
--- NOTE | 2019-07-18 23:04 | Progress Note ---
Assessment and Plan A: 28 y.o. @ 38+ wks, augmentation of labor d/t elevated BP's in the office, (pt was 4/50/-3 in the office), and contractions in office. Now SROM mec and bloody stained fluid. P: Continue with Pitocin per protocol. Anticipate . [facility] team at delivery. - Patient Problems (1) Elevated blood pressure reading in office without diagnosis of hypertension Current Visit: Yes Status: Acute (2) 38 to 41 weeks gestation of Current Visit: Yes Status: Acute Subjective - Subjective Date of service: 07/18/19 (Comfortable with epidural, SROM approximately 2230.) Principal diagnosis: IUP @ 38.6 wks, elevated BP's in office, IOL Interval history: EDC Calculations LMP: 07/31/2018 Past History : 7 Term Births: 6 Premature Births: 0 Living Children: 6 Para: 6 Mult. Births: 0 Prev : 0 Prev. attempt? 0 Aborta: 0 Elect. Ab: 0 Spont. Ab: 0 Ectopics: 0 # 1 Delivery date: 12/13/2010 Weeks Gestation: 36 labor: yes Delivery type: Anesthesia type: epidural Delivery location: [facility] Infant Sex: Male weight: 5-11 Name: Olu # 2 Delivery date: 12/28/2011 Weeks Gestation: 37 Delivery type: Anesthesia type: epidural Delivery location: [facility] Sex: Male weight: 6-6 Name: Vinita # 3 Delivery date: 07/22/2013 Weeks Gestation: 38 Delivery type: Delivery location: [facility] Sex: Female weight: 5-12 Name: Josy # 4 Delivery date: 03/20/2015 Weeks Gestation: 38 Delivery type: Delivery location: [facility] Sex: Male weight: 7-0 # 5 Delivery date: 11/26/2016 Weeks Gestation: 37+3 Delivery type: Vaginal Anesthesia type: epidural Delivery location: [facility] Sex: male weight: 5.94 Comments: none # 6 Delivery date: 07/24/2018 Weeks Gestation: 39 labor: no Delivery type: Delivery location: [facility] Infant Sex: Male weight: 5.81 Past Medical History: Reviewed history from 08/21/2014 and no changes required: None Past Surgical History: Reviewed history from 08/21/2014 and no changes required: Hernia repair as a child Past Medical History 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 Infection History Hx of STD: HPV HIV Risk Eval: no Hepatitis B Risk Eval: low risk Personal hx. of genital herpes: no Partner hx. of genital herpes: no Rash, Viral, or Febrile illness since last LMP? no Genetic History Congenital Heart Defect: Mom: no Dad: no Myesha Disease: Mom: no Dad: no Thalassemia Mom: no Dad: no Neural Tube Defect Mom: no Dad: no Down's Syndrome Mom: no Dad: no Paco-Sachs Mom: no Dad: no Sickle Cell Disease/Trait Mom: yes Dad: no Hemophilia Mom: no Dad: no Muscular Dystrophy Mom: no Dad: no Cystic Fibrosis Mom: no Dad: no Karely Chorea Mom: no Dad: no Mental Retardation Mom: no Dad: no Fragile X Mom: no Dad: no Other Genetic/Chromosomal Disorder Mom: no Dad: no Child w/other defect Mom: no Dad: no Enviromental Exposures Xray Exposure: no Medication, drug, or alcohol use since LMP: no Chemical/Other Exposure: no Exposure to Cat Liter: no Hx of Parvovirus (Fifth Disease): no Occupational Exposure to Children: none Active Medications (reviewed today): PLUS 27-1 MG ORAL TABLET ( VIT-FE FUMARATE-FA) 1 po qd Current Allergies (reviewed today): No known allergies Patient reports: loss of fluid (Pt states that "she feels wet between her legs". SROM mec and bloody stained fluid. ), vaginal bleeding (Bloody show noted. ), movement normal Objective - Vital Signs Vital Signs: Vital Signs - 12hr 07/18/19 07/18/19 07/18/19 11:55 11:59 12:09 Temperature Pulse Rate 109 H 103 H 108 H Blood Pressure 168/109 159/95 148/98 O2 Sat by Pulse Oximetry 07/18/19 07/18/19 07/18/19 12:14 12:33 13:10 Temperature Pulse Rate 107 H 110 H 96 H Blood Pressure 153/101 143/97 140/89 O2 Sat by Pulse Oximetry 07/18/19 07/18/19 07/18/19 13:15 13:24 13:30 Temperature Pulse Rate 105 H 105 H 105 H Blood Pressure 144/93 149/91 146/93 O2 Sat by Pulse Oximetry 07/18/19 07/18/19 07/18/19 13:45 14:12 14:17 Temperature Pulse Rate 104 H 91 H 103 H Blood Pressure 139/95 136/86 O2 Sat by Pulse 100 99 Oximetry 07/18/19 07/18/19 07/18/19 14:22 14:27 14:32 Temperature Pulse Rate 101 H 100 H 107 H Blood Pressure O2 Sat by Pulse 100 100 99 Oximetry 07/18/19 07/18/19 07/18/19 15:38 15:41 16:50 Temperature 97.9 F Pulse Rate 102 H 102 H Blood Pressure 129/78 142/90 O2 Sat by Pulse Oximetry 07/18/19 07/18/19 07/18/19 16:55 17:21 17:41 Temperature Pulse Rate 103 H 102 H 103 H Blood Pressure 136/81 130/74 O2 Sat by Pulse 99 Oximetry 07/18/19 07/18/19 07/18/19 17:46 17:47 17:49 Temperature Pulse Rate 96 H 100 H 107 H Blood Pressure 148/97 138/92 O2 Sat by Pulse 99 Oximetry 07/18/19 07/18/19 07/18/19 17:51 17:52 17:55 Temperature Pulse Rate 100 H 109 H 115 H Blood Pressure 142/77 141/76 O2 Sat by Pulse 98 Oximetry 07/18/19 07/18/19 07/18/19 17:56 17:58 18:01 Temperature Pulse Rate 126 H 127 H 114 H Blood Pressure 117/56 112/56 O2 Sat by Pulse 99 98 Oximetry 07/18/19 07/18/19 07/18/19 18:05 18:06 18:08 Temperature Pulse Rate 106 H 101 H 94 H Blood Pressure 101/48 119/58 O2 Sat by Pulse 98 Oximetry 07/18/19 07/18/19 07/18/19 18:10 18:11 18:14 Temperature Pulse Rate 96 H 103 H 98 H Blood Pressure 121/58 90/51 O2 Sat by Pulse 98 Oximetry 07/18/19 07/18/19 07/18/19 18:16 18:19 18:21 Temperature Pulse Rate 93 H 110 H 106 H Blood Pressure 111/53 102/55 O2 Sat by Pulse 98 97 Oximetry 07/18/19 07/18/19 07/18/19 18:22 18:25 18:26 Temperature Pulse Rate 103 H 100 H 104 H Blood Pressure 100/50 111/55 O2 Sat by Pulse 97 Oximetry 07/18/19 07/18/19 07/18/19 18:28 18:31 18:35 Temperature Pulse Rate 102 H 103 H 81 Blood Pressure 94/50 87/48 116/56 O2 Sat by Pulse 97 Oximetry 07/18/19 07/18/19 07/18/19 18:36 18:38 18:41 Temperature Pulse Rate 95 H 100 H 88 Blood Pressure 100/52 83/44 O2 Sat by Pulse 98 97 Oximetry 07/18/19 07/18/19 07/18/19 18:43 18:46 18:51 Temperature Pulse Rate 84 89 94 H Blood Pressure 97/49 O2 Sat by Pulse 100 100 Oximetry 07/18/19 07/18/19 07/18/19 18:56 18:58 19:01 Temperature Pulse Rate 86 87 91 H Blood Pressure 93/54 O2 Sat by Pulse 100 100 Oximetry 07/18/19 07/18/19 07/18/19 19:05 19:06 19:11 Temperature 98.0 F Pulse Rate 85 80 Blood Pressure O2 Sat by Pulse 100 100 Oximetry 07/18/19 07/18/19 07/18/19 19:13 19:16 19:21 Temperature Pulse Rate 78 87 90 Blood Pressure 102/50 O2 Sat by Pulse 100 100 Oximetry 07/18/19 07/18/19 07/18/19 19:26 19:31 19:36 Temperature Pulse Rate 84 86 79 Blood Pressure O2 Sat by Pulse 100 100 100 Oximetry 07/18/19 07/18/19 07/18/19 19:41 19:43 19:46 Temperature Pulse Rate 91 H 89 85 Blood Pressure 109/53 O2 Sat by Pulse 100 100 Oximetry 07/18/19 07/18/19 07/18/19 19:51 19:56 20:01 Temperature Pulse Rate 87 89 98 H Blood Pressure O2 Sat by Pulse 100 100 99 Oximetry 07/18/19 07/18/19 07/18/19 20:06 20:11 20:13 Temperature Pulse Rate 97 H 89 89 Blood Pressure 132/61 O2 Sat by Pulse 100 100 Oximetry 07/18/19 07/18/19 07/18/19 20:16 20:21 20:26 Temperature Pulse Rate 82 89 88 Blood Pressure O2 Sat by Pulse 100 100 99 Oximetry 07/18/19 07/18/19 07/18/19 20:31 20:36 20:41 Temperature Pulse Rate 81 85 89 Blood Pressure O2 Sat by Pulse 98 99 98 Oximetry 07/18/19 07/18/19 07/18/19 20:43 20:46 20:51 Temperature Pulse Rate 83 89 89 Blood Pressure 110/57 O2 Sat by Pulse 97 98 Oximetry 07/18/19 07/18/19 07/18/19 20:56 21:01 21:06 Temperature Pulse Rate 80 89 89 Blood Pressure O2 Sat by Pulse 99 99 99 Oximetry 07/18/19 07/18/19 07/18/19 21:11 21:13 21:16 Temperature Pulse Rate 91 H 85 89 Blood Pressure 110/60 O2 Sat by Pulse 98 98 Oximetry 07/18/19 07/18/19 07/18/19 21:21 21:26 21:31 Temperature Pulse Rate 81 85 79 Blood Pressure O2 Sat by Pulse 98 98 97 Oximetry 07/18/19 07/18/19 07/18/19 21:36 21:41 21:43 Temperature Pulse Rate 83 78 72 Blood Pressure 113/57 O2 Sat by Pulse 97 98 Oximetry 07/18/19 07/18/19 07/18/19 21:46 21:51 21:52 Temperature Pulse Rate 86 84 75 Blood Pressure 106/57 O2 Sat by Pulse 99 99 Oximetry 07/18/19 07/18/19 07/18/19 21:56 22:01 22:06 Temperature Pulse Rate 76 75 79 Blood Pressure O2 Sat by Pulse 99 99 98 Oximetry 07/18/19 07/18/19 07/18/19 22:11 22:13 22:16 Temperature Pulse Rate 74 67 77 Blood Pressure 95/54 O2 Sat by Pulse 99 99 Oximetry 07/18/19 07/18/19 07/18/19 22:21 22:26 22:31 Temperature Pulse Rate 89 72 78 Blood Pressure O2 Sat by Pulse 98 99 99 Oximetry 07/18/19 07/18/19 07/18/19 22:36 22:41 22:43 Temperature Pulse Rate 76 77 75 Blood Pressure 102/57 O2 Sat by Pulse 99 99 Oximetry 07/18/19 07/18/19 22:46 22:51 Temperature Pulse Rate 94 H 88 Blood Pressure O2 Sat by Pulse 99 99 Oximetry - Exam Breasts: deferred Cardiovascular: Regular rate Lungs: Normal air movement Abdomen: Present: normal appearance Vulva: both: normal Uterus: Present: normal FHR: category 1 Uterine Contraction Monitor Mode: External Cervical Dilatation: 8 Cervical Effacement Percentage: 90 station: -1 Uterine Contraction Pattern: Regular Uterine Contraction Intensity: Moderate Extremities: normal Deep Tendon Reflex Grade: Normal +2 - Labs Labs: Abnormal Labs 07/18/19 07/18/19 07/18/19 12:00 12:00 21:08 RDW 17.9 H 17.8 H Lactate Dehydrogenase 216 H Laboratory Results - last 24 hr 07/18/19 07/18/19 07/18/19 12:00 12:00 12:00 WBC 6.6 RBC 4.88 Hgb 13.4 Hct 39.4 MCV 81 MCH 28 MCHC 34 RDW 17.9 H Plt Count 179 Creatinine 0.7 Estimated GFR > 60 Uric Acid 5.9 AST 34 ALT 21 Lactate Dehydrogenase 216 H Urine Color Straw Urine Turbidity Hazy Urine pH 6.0 Ur Specific [place] 1.010 Urine Protein <15 mg/dl Urine Glucose (UA) Neg Urine Ketones Neg Urine Blood Neg Urine Nitrite Neg Urine Bilirubin Neg Urine Urobilinogen < 2.0 Ur Leukocyte Esterase Tr Urine WBC (Auto) 1.0 Urine RBC (Auto) 1.0 U Epithel Cells (Auto) 4.0 Syphilis IgG Antibody Blood Type Antibody Screen 07/18/19 07/18/19 07/18/19 12:49 12:49 21:08 WBC 7.7 RBC 4.38 Hgb 12.1 Hct 35.8 MCV 82 MCH 28 MCHC 34 RDW 17.8 H Plt Count 172 Creatinine Estimated GFR Uric Acid AST ALT Lactate Dehydrogenase Urine Color Urine Turbidity Urine pH Ur Specific [place] Urine Protein Urine Glucose (UA) Urine Ketones Urine Blood Urine Nitrite Urine Bilirubin Urine Urobilinogen Ur Leukocyte Esterase Urine WBC (Auto) Urine RBC (Auto) U Epithel Cells (Auto) Syphilis IgG Antibody Non-reactive Blood Type O POSITIVE Antibody Screen Negative
[2019-07-19] MEDS: OXYTOCIN 20 UNIT/1000ML DRIP 20 UNITS/1,000 ML BAG IV SCH ×2 (01:05→02:52)
[2019-07-19] MEDS ORDERED: WITCH HAZEL/ GLYCERIN PAD TP PRN (01:26)
[2019-07-19] MEDS ORDERED: diphenhydrAMINE 25 MG CAP PO PRN (01:26)
[2019-07-19] MEDS ORDERED: MAGNESIUM HYDROXIDE (MOM) ORAL LIQD UDC PO PRN (01:26)
[2019-07-19] MEDS ORDERED: BENZOCAINE/MENTHOL 20/0.5% TOP SPRAY 56 GM TP PRN (01:26)
[2019-07-19] MEDS ORDERED: PROMETHAZINE 25 MG TAB PO PRN (01:26)
[2019-07-19] MEDS ORDERED: PROMETHAZINE 25 MG RECT SUPP PR PRN (01:26)
[2019-07-19] MEDS ORDERED: LANOLIN/ZINC/DIMETHICONE (LANSINOH) 7 GM TP PRN (01:26)
[2019-07-19] MEDS ORDERED: ONDANSETRON 4 MG/2 ML INJ IV PRN (01:26)
[2019-07-19] MEDS ORDERED: ACETAMINOPHEN 500 MG TAB PO PRN (01:32)
--- NOTE | 2019-07-19 01:40 | Procedure Note ---
OB Delivery Note - Delivery Date of Delivery: 07/19/19 Psychology Physician: ELANA HEREDIA Estimated blood loss: 300cc - Vaginal Delivery presentation: vertex Delivery position: OA Intrapartum events: meconium, other(please specify) (Elevated blood pressures) Delivery induction: none Delivery augmentation: pitocin Delivery monitor: external FHT, external uterine Route of delivery: Delivery placenta: spontaneous Delivery cord: 3 umbilical vessels, other (Umbilical cord wrapped around baby's right foot X2) Episiotomy: none Delivery laceration: none Anesthesia: epidural Delivery comments: of viable female over intact perineum. Infant to mothers chest. Umbilical cord wrapped around infants right foot X 2, easily reduced. Cord cut and clamped and handed to awaiting [facility] team d/t meconium stained fluid. Spontaneous delivery of intact placenta, complete. 3 vessels noted. Fundus firm with minimal bleeding noted. Perineum and vagina inspected. Abrasions noted, no lacerations that needed repair. Apgars 8,9. Weight 6-14. EBL 300ml. Mother and infant left in care of RN in stable condition. Sponges and instruments counted with RN and correct X2.
[2019-07-19] MEDS: IBUPROFEN 800 MG TAB PO SCH ×3 (02:46→18:04)
[2019-07-19] MEDS ORDERED: IBUPROFEN 800 MG TAB PO SCH (06:00)
[2019-07-19] MEDS: PRENATAL VIT27-FE FUMARATE-FOLIC ACID VIT TAB PO SCH (09:33)
[2019-07-19] MEDS: DOCUSATE SODIUM 100 MG CAP PO SCH ×2 (09:34→22:57)
[2019-07-19 15:50] LABS: Hematocrit 30.6 % (30.3-42.9); Hemoglobin 10.6 gm/dl (10.1-14.3)
--- NOTE | 2019-07-19 20:32 | Post Anesthesia Evaluation ---
- Post Anesthesia Evaluation Patient Participated: Yes Airway Patent: Yes Stable Respiratory Function: Yes Nausea/Vomiting: No Temp > 96.8F: Yes Pain Manageable: Yes Adequeate Hydration: Yes Anesthesia Complications: No Block Receding Appropriately: Yes
[2019-07-20] MEDS: IBUPROFEN 800 MG TAB PO SCH ×3 (00:27→16:43)
[2019-07-20] MEDS ORDERED: DIPHtheria,PERTUSSIS(ACELL),TETANUS VACCINE/PF 0.5 ML VIAL IM ONE (06:00)
--- NOTE | 2019-07-20 08:53 | Discharge Summary ---
Providers - Providers Date of Admission: 07/18/19 14:29 Date of discharge: 07/20/19 Attending physician: MARIANO ROBLERO Primary care physician: MARIANO ROBLERO Hospitalization Reason for admission: Labor Condition: Good Pertinent studies: post delivery H&H 10.6/30.6 Procedures: Hospital course: uncomplicated and course Disposition: DC-01 TO HOME OR SELFCARE - Discharge Diagnoses (1) Spontaneous vaginal delivery Status: Acute Core Measure Documentation - Palliative Care Palliative Care/ Comfort Measures: Not Applicable - Core Measures Any of the following diagnoses?: none Exam - Constitutional Vitals: Temp Pulse Resp BP Pulse Ox 98.2 F 85 18 100/49 98 07/20/19 00:15 07/20/19 00:15 07/20/19 07:31 07/20/19 00:15 07/20/19 00:15 General appearance: Present: no acute distress, well-nourished - EENT Eyes: Present: PERRL ENT: hearing intact, clear oral mucosa - Neck Neck: Present: supple, normal ROM - Respiratory Respiratory effort: normal Respiratory: bilateral: CTA - Cardiovascular Heart Sounds: Absent: rub, click - Extremities Extremities: pulses symmetrical, No edema - Abdominal General gastrointestinal: Present: soft, non-tender, non-distended, normal bowel sounds Female genitourinary: Present: normal - Integumentary Integumentary: Present: clear, warm, dry - Musculoskeletal Musculoskeletal: gait normal, strength equal bilaterally - Psychiatric Psychiatric: appropriate mood/affect, intact judgment & insight - Neurologic Neurologic: CNII-XII intact, moves all extremities - Additional findings Additional findings: fundus firm, lochia scant, Plan Activity: no restrictions Diet: regular Follow up with: MARIANO ROBLERO MD [Primary Care Provider] - 08/20/19 (Congratulations! Please call [phone] to schedule your appointment in 4 weeks. Call for any questions or concerns.) Prescriptions: Ibuprofen [Motrin 800 MG tab] 800 mg PO Q8HR PRN #30 tablet PRN Reason: Pain
[2019-07-20] MEDS ORDERED: medroxyPROGESTERone ACETATE 150 MG/ML SYRINGE IM ONE ×2 (10:00→16:42)
[2019-07-20] MEDS: DOCUSATE SODIUM 100 MG CAP PO SCH (16:43)
[2019-07-20] MEDS: PRENATAL VIT27-FE FUMARATE-FOLIC ACID VIT TAB PO SCH (16:44)
[2019-07-20 18:10] VITALS: BP 137/83
== END 2019-07-20 16:54 | disposition home or self-care (01) | DRG 775 ==
LOC: TRG 11:19 → OB 11:21 → APU 11:50 → LD 14:28 → TRG 14:29 → OB 07-19 04:02
PROVIDERS: ADMIT Obstetrics & Gynecology; ATTEND Obstetrics & Gynecology
PROC: 10E0XZZ Delivery of Products of Conception, External Approach (ICD-10-PCS; principal; 2019-07-19)
PROC: 3E0R3BZ Introduction of Anesthetic Agent into Spinal Canal, Percutaneous Approach (ICD-10-PCS; 2019-07-19)
PROC: 00HU33Z Insertion of Infusion Device into Spinal Canal, Percutaneous Approach (ICD-10-PCS; 2019-07-19)
PROC: 3E0234Z Introduction of Serum, Toxoid and Vaccine into Muscle, Percutaneous Approach (ICD-10-PCS; 2019-07-20)
DX: O77.0 Labor and delivery complicated by meconium in amniotic fluid (principal); Z3A.38 38 weeks gestation of pregnancy; Z37.0 Single live birth; O71.89 Other specified obstetric trauma; O69.81X0 Labor and delivery complicated by cord around neck, without compression, not applicable or unspecified; Z23 Encounter for immunization
CPT/HCPCS: 36415; 76815; 81001; 82565; 83615; 84450; 84460; 84550; 85014; 85018; 85027; 86592; 86850; 86900; 86901; G0378; J1050; J2405; J2590; J3490; J7120